=== PATIENT | female | born 1970 | race Caucasian/White ===

== ENCOUNTER → 2018-05-18 14:04 | Outpatient (CLI) | payer MEDICARE, MEDICAID, SELFPAY ==
[2018-05-18 16:16] LABS: Hematocrit 36.3 % (37-47); Hemoglobin 12.4 g/dl (12.0-15.0); Mean Corp Hgb Conc 34.2 g/gl (32-36); Mean Corpuscular Volume 90.8 fL (81-99); Mean Platelet Vol. 9.8 fl (6.2-12.0); Platelet Count 342 K/mm3 (150-450); RBC Distribution Width CV 11.9 % (11.6-14.6); RBC Distribution Width SD 38.8 fl (35.1-43.9)
[2018-05-18 16:18] LABS: Carbamazepine (Tegretol) 9.8 ug/mL (4.0-12.0)
[2018-05-18 16:20] LABS: ALB/GLOB Ratio 1.2 RATIO (0.9-2.4); AST(SGOT) 9 U/L (15-37); Alanine Aminotransfer ALT/SGPT 21 U/L (13-56); Alkaline Phosphatase 125 U/L (45-117); Anion Gap 8 (5-15); BUN 13 mg/dL (7-18); BUN/Creat Ratio 28.5 RATIO (10-20); Calcium,Total 8.8 mg/dL (8.5-10.1); Chloride 100 mmol/L (98-107); Creatinine, Serum 0.46 mg/dL (0.55-1.02); EST Glomerular Filtration Rate 155 mL/min (>60); Est Glom Filt Rate - Afr Amer 188 mL/min (>60); Globulin 3.4 g/dL (2.2-4.2); Glucose 117 mg/dL (74-106); Magnesium 2.4 mg/dL (1.6-2.6); Phosphorus 3.9 mg/dL (2.5-4.9); Potassium 3.8 mmol/L (3.5-5.1); Protein, Total 7.4 g/dL (6.4-8.2); Sodium Level 135 mmol/L (136-145)
[2018-05-18 16:34] LABS: Scan Indicated on CBC? Y/N NO
== END ==
PROVIDERS: Family Provider Internal Medicine; PCP Internal Medicine; Referring Provider Nurse Practitioner Acute Care; Visit Provider Nurse Practitioner Acute Care
DX: R56.9 Unspecified convulsions (principal)
CPT/HCPCS: 36415; 80053; 80156; 83735; 84100; 85027

== ENCOUNTER → 2018-12-14 | Outpatient (CLI) | payer MEDICARE, MEDICAID, SELFPAY ==
[2018-12-14 13:34] LABS: Absolute Lymphocyte Count 1.32 X10^3/uL (0.83-4.51); Basophil# 0.03 X10^3/uL; Basophil% 0.6 % (0-1); Eosinophil# 0.04 X10^3/uL; Eosinophils% 0.8 % (0-5); Hematocrit 36.2 % (37-47); Hemoglobin 12.3 g/dL (12.0-15.0); Lymphocyte # 1.32 X10^3/ul (4.0); Lymphocyte % 27.3 % (19-41); Mean Corpuscular Volume 91.2 fL (81-99); Mean Platelet Vol. 9.5 fl (6.2-12.0); Monocyte# 0.42 X10^3/uL; Monocyte% 8.7 % (0-10); NRBC Flagged by Analyzer 0 % (0-5); Neutrophil # 3.01 X10^3/uL (2.7-7.7); Neutrophil % 62.4 % (47-70); Platelet Count 347 K/mm3 (150-450); RBC Distribution Width CV 11.8 % (11.6-14.6); RBC Distribution Width SD 39.7 fl (35.1-43.9); Red Blood Count 3.97 M/mm3 (4.2-5.4); White Blood Count 4.8 K/mm3 (4.4-11.0)
[2018-12-14 14:06] LABS: ALB/GLOB Ratio 1.2 RATIO (0.9-2.4); AST(SGOT) 10 U/L (15-37); Alanine Aminotransfer ALT/SGPT 19 U/L (13-56); Alkaline Phosphatase 108 U/L (45-117); Anion Gap 8 (5-15); BUN 10 mg/dL (7-18); Bilirubin, Direct 0.08 mg/dL (0.00-0.30); Calcium,Total 8.9 mg/dL (8.5-10.1); Chloride 98 mmol/L (98-107); Creatinine, Serum 0.44 mg/dL (0.55-1.02); EST Glomerular Filtration Rate 164 mL/min (>60); Est Glom Filt Rate - Afr Amer 198 mL/min (>60); Globulin 3.4 g/dL (2.2-4.2); Glucose 88 mg/dL (74-106); Potassium 4.3 mmol/L (3.5-5.1); Protein, Total 7.4 g/dL (6.4-8.2); Sodium Level 135 mmol/L (136-145)
[2018-12-14 14:18] LABS: Carbamazepine (Tegretol) 13.3 ug/mL (4.0-12.0)
== END | disposition home or self-care (01) ==
LOC: LAB 11:38
PROVIDERS: Family Provider Internal Medicine; PCP Internal Medicine; Referring Provider Nurse Practitioner Family; Visit Provider Nurse Practitioner Family
DX: R56.9 Unspecified convulsions (principal)
CPT/HCPCS: 36415; 80053; 80156; 82248; 85025

== ENCOUNTER → 2019-01-15 | Outpatient (CLI) | payer MEDICARE, MEDICAID, SELFPAY ==
--- NOTE | 2019-01-18 15:39 | EEG ---
- Electroencephalogram Date of service 01/15/2019 History: EEG is being done in this 48 yr F to rule out seizures EEG Description: This is an 18 channel EEG with 10-20 lead placement system. Bipolar montages, and Referential montages were reviewed. Photic stimulation was performed but Hyperventilation was not performed. The posterior dominant rhythm is 5 HZ synchronous, symmetric, reacting to eye opening and closing. Photo stimulation elicited normal driving response but no abnormal photoparoxysmal response, Hyperventilation was not performed. Sleep was not identified. There is abnormal background slowing noted in the theta frequency range. There was no epileptiform discharges or electrographic seizures noted during this recording. Muscle artefact noted during most of the record. EEG Interpretation This is an abnormal EEG due to the presence of moderate generalized background slowing. This may be seen with generalized cerebral dysfunction like metabolic/toxic encephalopathy. Clinical correlation is advised. There is no epileptiform discharges or electrographic seizures noted during the record.
== END | disposition home or self-care (01) ==
LOC: PSN 09:17
PROVIDERS: Family Provider Internal Medicine; PCP Internal Medicine; Referring Provider Nurse Practitioner Family; Visit Provider Nurse Practitioner Family
DX: R56.9 Unspecified convulsions (principal)
CPT/HCPCS: 95819

== ENCOUNTER 2019-02-22 10:25 | Inpatient (IN) | payer MEDICARE, MEDICAID, SELFPAY ==
[2019-02-22] VITALS (11 sets, daily range): BP systolic 89–122; BP diastolic 62–92; PULSE 74–116; RESP 11–21; TEMP 36.7–37.7; O2SAT 97–100; BMI 21.9; BMI 23.3; BMI 23.4
--- NOTE | 2019-02-22 11:07 | ED.DCSUM_ITS ---
History of Present Illness Chief Complaint: Lower Extremity Injury Informant: - - Caregiver Limited by: - - Cognitive impairment/developmentally delayed Onset: Today Context: Sudden Onset Timing: Continuous Quality: Swelling and redness right knee Location: Anterior right knee Current Severity: Moderate Maximum Severity: Moderate Worsened by: Unknown Relieved by: Nothing Associated Symptoms: Unknown Prior similar symptoms: No Recent Illness/Hospitalization: No - Past Medical History (1) MRDM (malnutrition related diabetes mellitus) Status: Deleted Past Medical History - Allergies and Home Meds Allergies/Adverse Reactions: Allergies No Known Allergies Allergy (Verified 08/18/15 09:21) Prior records reviewed: Yes Surgical History: noncontributory Lives: - - Caregiver Smoking Status: Never smoker Alcohol: None Drugs: None - Family History Maternal Family History: Reports: Heart Disease Review of Systems ROS: Unable to Obtain - Significant cognitive impairment Musculoskeletal: Reports: Swelling, Extremity Pain Skin: Reports: Rash Physical Exam Vital Signs/Narrative: Vital Signs Temp Pulse Resp BP Pulse Ox 02/22/19 10:26 99.9 F H 91 18 121/73 H 98 Inital Vital Signs reviewed: Yes General: Well nourished, Well developed, No Acute Distress Head: Normocephalic, Atraumatic Eyes: Perrl, EOMI. Negative for: Pale conjunctiva, Scleral icterus, - ENT: Moist mucous membranes, No rhinorrhea Neck: Supple, Nontender, No lymphadenopathy, No JVD Cardiovascular: Regular rate, Regular rhythm, No murmurs, Normal S1, Normal S2 Respiratory: No distress, CTA bilaterally, Chest nontender Abdomen: Soft, Nontender, Nondistended Back: Nontender Extremities: Tenderness - There is significant swelling with erythema and fluctuance over the prepatellar bursa right knee. There is no lymphangitis. There is no inguinal lymphadenopathy.. Negative for: Nontender Skin: Normal color, Rash - Colitis anterior right knee Neurological: Alert. Negative for: Oriented x3, Cranial nerves II-XII grossly intact, Normal Strength, Normal Sensation, Normal Gait - Caregiver states she ambulates on her knees Psychological: Normal affect Diagnostic/Tx/Re-eval Laboratory Results 02/22/19 02/22/19 02/22/19 11:10 11:10 11:10 WBC 10.9 RBC 3.82 L Hgb 11.7 L Hct 34.6 L MCV 90.6 MCH 30.6 MCHC 33.8 RDW Std Deviation 38.7 RDW Coeff of Domitila 11.7 Plt Count 301 MPV 9.3 Immature Gran % (Auto) 0.500 Neut % (Auto) 77.1 H Lymph % (Auto) 10.3 L [place] % (Auto) 11.8 H Eos % (Auto) 0.1 Baso % (Auto) 0.2 Absolute Neuts (auto) 8.4 H Absolute Lymphs (auto) 1.13 Nucleated RBC % 0 Sodium 132 L Potassium 4.2 Chloride 98 Carbon Dioxide 29.0 Anion Gap 5 BUN 7 Creatinine 0.40 L Estim Creat Clear Calc 122.20 Est GFR (MDRD) Af Amer 218 Est GFR (MDRD) Non-Af 180 BUN/Creatinine Ratio 17.5 Glucose 101 Lactic Acid 0.9 Calcium 8.8 Total Bilirubin 0.30 AST 16 ALT 20 Alkaline Phosphatase 118 H Total Protein 7.5 Albumin 3.7 Globulin 3.8 Albumin/Globulin Ratio 1.0 - Medical Decision Making Patient with evidence of septic bursitis and cellulitis right knee. He has not had anything to eat since last evening. There is no allergy to soy products or egg products. Will obtain consent from caregiver for deep sedation with propofol and I&D of septic bursitis. Infectious work-up was undertaken and a lactate and blood cultures were obtained prior to initiation of antibiotics. White count is normal. Lactate is normal. There was thick purulent material from prepatellar bursa. The hospitalist and orthopedic surgeon were paged for admission. Procedures Procedure(s): Deep procedural sedation and I&D of septic prepatellar bursa. Patient received a total of 100 mg of propofol. Total time for procedure 6 minutes. Start time 1244 end time 1250. Patient tolerated procedure well without complications. Once desired effect was achieved the area was anesthetized with 1% lidocaine. Incision was made using a 10 blade. There was thick gelatinous purulent material that flowed freely from incision site. Blunt dissection was undertaken. Culture was obtained. Wick was placed. ED Disposition - Plan for ED Patient: Disposition: Acute Care [facility] Diagnosis: Septic infrapatellar bursitis of right knee, Cellulitis of right knee
[2019-02-22 11:27] LABS: Absolute Lymphocyte Count 1.13 X10^3/uL (0.83-4.51); Absolute Neutrophil Count 8.4 X10^3/uL (2.0-7.7); Basophil# 0.02 X10^3/uL; Basophil% 0.2 % (0-1); Eosinophil# 0.01 X10^3/uL; Eosinophils% 0.1 % (0-5); Hematocrit 34.6 % (37-47); Hemoglobin 11.7 g/dL (12.0-15.0); Lymphocyte # 1.13 X10^3/ul (4.0); Lymphocyte % 10.3 % (19-41); Mean Corp Hgb Conc 33.8 g/dL (32-36); Mean Corpuscular Hgb 30.6 pg (27.0-32.0); Mean Corpuscular Volume 90.6 fL (81-99); Mean Platelet Vol. 9.3 fl (6.2-12.0); Monocyte# 1.29 X10^3/uL; Monocyte% 11.8 % (0-10); NRBC Flagged by Analyzer 0 % (0-5); Neutrophil # 8.43 X10^3/uL (2.7-7.7); Neutrophil % 77.1 % (47-70); Platelet Count 301 K/mm3 (150-450); RBC Distribution Width CV 11.7 % (11.6-14.6); RBC Distribution Width SD 38.7 fl (35.1-43.9); Red Blood Count 3.82 M/mm3 (4.2-5.4); White Blood Count 10.9 K/mm3 (4.4-11.0)
[2019-02-22 11:37] LABS: AST(SGOT) 16 U/L (15-37); Alanine Aminotransfer ALT/SGPT 20 U/L (13-56); Albumin, Serum 3.7 g/dL (3.2-5.0); Alkaline Phosphatase 118 U/L (45-117); Anion Gap 5 (5-15); BUN 7 mg/dL (7-18); BUN/Creat Ratio 17.5 RATIO (10-20); Calcium,Total 8.8 mg/dL (8.5-10.1); Chloride 98 mmol/L (98-107); EST Glomerular Filtration Rate 180 mL/min (>60); Est Glom Filt Rate - Afr Amer 218 mL/min (>60); Globulin 3.8 g/dL (2.2-4.2); Glucose 101 mg/dL (74-106); Potassium 4.2 mmol/L (3.5-5.1); Protein, Total 7.5 g/dL (6.4-8.2); Sodium Level 132 mmol/L (136-145)
[2019-02-22 11:46] LABS: Lactic Acid 0.9 mmol/L (0.4-2.0)
--- NOTE | 2019-02-22 12:50 | NURSING ---
DR BROWN PAGED HOSPITALIST PAGED
[2019-02-22] MEDS: Propofol 200 MG/20 ML Vial IV BOLUS (12:58)
--- NOTE | 2019-02-22 13:05 | NURSING ---
MED SURG JOPPERI SEPTIC BURSITIS RT KNEE AND CELLULITIS
--- NOTE | 2019-02-22 14:52 | HP.PCM_ITS ---
Problem List (1) Septic infrapatellar bursitis of right knee Status: Acute (2) Cellulitis of right knee Status: Acute History of Present Illness Date of Admission: 02/22/19 Chief Complaint: right knee hot and swollen The patient is a 48 year old F who has MRDD and unable to provide any history, so history is obtained through emergency physician as well as the patient's jail director. Patient was in her normal state of health yesterday but it was noted that her right knee was swollen and red. Patient was any manifesting any signs or symptoms of infection the patient was brought to the hospital. In the emergency room, patient underwent a bedside I&D that produced copious amounts of purulent fluid. Patient due to cerebral palsy has a shortened plantar tendons and so does not walk around normally because she takes a almost like seated stance when she walks so it is easier for her to actually fall to her knees and walk that way. Patient jail director states that she normally leans first on her right knee. Patient has developed a large callus under her right knee and is always slightly larger than her left but the changes were noted today. Patient has had some redness of her knees before but never to this extent. No prior history of gout. [] Past Medical History Medical History: Medical History (Last Updated 02/22/19 @ 14:55 by Jluis Zarate DO) Cerebral palsy G80.9 MRDM (malnutrition related diabetes mellitus) E46, E08.9 Seizure disorder G40.909 Allergies No Known Allergies Allergy (Verified 08/18/15 09:21) Home Medications: Ambulatory Orders Medication Instructions Recorded Carbamazepine [Tegretol] 300 mg PO BIDCM 08/29/14 Carbamazepine [Tegretol] 400 mg PO DAILY 08/29/14 Loratadine [Claritin] 10 mg PO DAILY@0630 08/29/14 Polyethylene Glycol 3350 [Miralax] 17 gm PO DAILY@1530 08/29/14 Lacosamide [Vimpat] 200 mg PO BID 02/22/19 Surgical History: noncontributory Lives: - - Caregiver Smoking Status: Never smoker Alcohol: None Drugs: None - *Family History Maternal History Items: Heart Disease Review of Systems Comment: Unable to obtain accurate review of systems as patient is a poor historian given her mental impairments. VTE Information - Inpt Only VTE Present on Admission: No VTE Mechan Device Prophylaxis: None VTE Pharm Prophylaxis ordered?: Yes Patient Problems: Active and Suspected Problems Septic infrapatellar bursitis of right knee (Acute) Cellulitis of right knee (Acute) - Physical Exam General: - - afebrile. pleasantly confused. HEENT: Atraumatic, Normocephalic Oral: Moist Mucosa, No Gingival or Mucosal Lesions/ Ulcerations Neck: No Nodes, Thyroid Normal Size and Texture Lungs: Clear to auscultation, Normal air movement, No rhonchi, No wheeze Cardiovascular: Regular rate, Regular Rhythm, Normal S1, Normal S2, No murmurs Abdomen: Bowel Sounds Present, Soft, Non Tender, Non-Distended, No Hepato- splenomegaly Extremities: Edema - Bogginess of the right knee. No tenderness to palpation. Skin: - - Erythema over the right knee that is withdrawn from the line of demarcation. Does have a horizontal incision with a wick in place. Neurological: Sensory exam intact to light touch and pain, - - No clonus Psych/Mental Status: - - Pleasantly confused. Vital Signs Temp Pulse Resp BP Pulse Ox 36.7 C 89 16 115/92 H 98 02/22/19 14:14 02/22/19 14:14 02/22/19 14:14 02/22/19 14:14 02/22/19 14:14 Oxygen Flow Rate (L/min) [3] 2 Oxygen Flow Rate (L/min) [2] 2 Oxygen Flow Rate (L/min) [1 ( 2 Initial Baseline)] Oxygen Flow Rate (L/min) 2 Oxygen Delivery Method [3] Nasal Cannula Oxygen Delivery Method [2] Nasal Cannula Oxygen Delivery Method [1 ( Nasal Cannula Initial Baseline)] Oxygen Delivery Method Room Air Weight: 54 kg Body Mass Index (BMI) 23.3 Intake and Output for Last 24 Hours 02/20/19 02/21/19 02/22/19 23:59 23:59 23:59 Intake Total 100 / 100 Balance 100 / 100 Laboratory Tests Past 24 Hrs 02/22/19 02/22/19 02/22/19 11:10 11:10 11:10 WBC 10.9 RBC 3.82 L Hgb 11.7 L Hct 34.6 L MCV 90.6 MCH 30.6 MCHC 33.8 RDW Std Deviation 38.7 RDW Coeff of Domitila 11.7 Plt Count 301 MPV 9.3 Immature Gran % (Auto) 0.500 Neut % (Auto) 77.1 H Lymph % (Auto) 10.3 L [place] % (Auto) 11.8 H Eos % (Auto) 0.1 Baso % (Auto) 0.2 Absolute Neuts (auto) 8.4 H Absolute Lymphs (auto) 1.13 Nucleated RBC % 0 Sodium 132 L Potassium 4.2 Chloride 98 Carbon Dioxide 29.0 Anion Gap 5 BUN 7 Creatinine 0.40 L Estim Creat Clear Calc 122.20 Est GFR (MDRD) Af Amer 218 Est GFR (MDRD) Non-Af 180 BUN/Creatinine Ratio 17.5 Glucose 101 Lactic Acid 0.9 Calcium 8.8 Total Bilirubin 0.30 AST 16 ALT 20 Alkaline Phosphatase 118 H Total Protein 7.5 Albumin 3.7 Globulin 3.8 Albumin/Globulin Ratio 1.0 Assessment/Plan All Active Problems Septic infrapatellar bursitis of right knee (Acute) Cellulitis of right knee (Acute) 1. Right knee cellulitis * Could also be infected bursitis * Patient did receive vancomycin in the emergency room and will continue on the floor * Orthopedics consulted through the emergency room and will defer any further surgical intervention, if necessary, to them. * This may relate with patient walking on her knees and causing some superficial abrasions at lead to this infection. 2. Cerebral palsy/MRDD * Complicates matters * Avoid chemical and physical restraints if patient does manifest episodes of confusion or sundowning unless necessary to protect patient or staff 3. Seizure disorder * Continue with seizure precautions * Continue with Tegretol and lacosamide 4. VTE prophylaxis: Moderate risk. Low molecular weight heparin. Code Visit Inpatient E&M: 09880 Init Hosp L3
--- NOTE | 2019-02-22 16:02 | PCM.RX.CS ---
Consult Pharmacy has been consulted to manage selected antiobiotic: Vancomycin Type of Consult: New start Suspected Infection: Other - bursitis Prior Doses of Antibiotics Received/Current Regimen: LOADING DOSE: vancomycin IV 1250mg x1 given in ER 1307 (02/22) Labs: Sodium 132 mmol/L (136-145) L 02/22/19 11:10 Potassium 4.2 mmol/L (3.5-5.1) 02/22/19 11:10 Chloride 98 mmol/L (98-107) 02/22/19 11:10 Carbon Dioxide 29.0 mmol/L (21.0-32.0) 02/22/19 11:10 Anion Gap 5 (5-15) 02/22/19 11:10 BUN 7 mg/dL (7-18) 02/22/19 11:10 Creatinine 0.40 mg/dL (0.55-1.02) L 02/22/19 11:10 Est GFR (MDRD) Af Amer 218 mL/min (>60) 02/22/19 11:10 Est GFR (MDRD) Non-Af 180 mL/min (>60) 02/22/19 11:10 BUN/Creatinine Ratio 17.5 RATIO (10-20) 02/22/19 11:10 Glucose 101 mg/dL (74-106) 02/22/19 11:10 Goal Trough: 15-20 mcg/mL Pharmacy Plan for Drug Dosin. based on actual body weight and CrCl 122, will start vancomycin IV 750mg q8h starting at 2100 2. will order trough prior to 4th dose Pharmacy Service will continue to monitor and adjust dosing as required. Labs to be done on [date and time ordered]: trough 02/23/19 @ 1230
[2019-02-22] MEDS: Polyethylene Glycol 3350 17 GM PACKET PO (16:16)
[2019-02-22] MEDS: CARBAMAZEPINE 100 MG TAB.CHEW 400 MG PO (16:26)
--- NOTE | 2019-02-22 18:33 | CON.PCM_ITS ---
Reason for Consult Date of Consultation: 02/22/19 Reason for Consultation: Right knee pain, prepatellar bursitis. Requested by Dr. Carpenter History of Present Illness: The patient is a 48 year old F with severe MRDD and multiple medical comorbidities. Patient normally does crawl around on her knees for mobility around the house. She has chronic calluses on the anterior knees. 1 of her caregivers is at the bedside and gives most of history. She presented to the emergency department this morning. She had severe knee pain and swelling over the anterior knee. The emergency department physician did a bedside irrigation debridement and patient was started on IV antibiotics and admitted to the hospital. Currently her pain is in the front part of her knee. She has associated swelling and redness. The redness has improved since outlined in the emergency department. She has received vancomycin and Zosyn. Past Medical History Medical History: Medical History (Last Updated 02/22/19 @ 14:55 by Jluis Zarate DO) Cerebral palsy G80.9 MRDM (malnutrition related diabetes mellitus) E46, E08.9 Seizure disorder G40.909 Allergies No Known Allergies Allergy (Verified 08/18/15 09:21) Home Medications: Ambulatory Orders Medication Instructions Recorded Carbamazepine [Tegretol] 300 mg PO BIDCM 08/29/14 Carbamazepine [Tegretol] 400 mg PO DAILY 08/29/14 Loratadine [Claritin] 10 mg PO DAILY@0630 08/29/14 Polyethylene Glycol 3350 [Miralax] 17 gm PO DAILY@1530 08/29/14 Lacosamide [Vimpat] 200 mg PO BID 02/22/19 Surgical History: noncontributory Lives: - - Caregiver Smoking Status: Never smoker Alcohol: None Drugs: None - *Family History Maternal History Items: Heart Disease Review of Systems Constitutional: Reports: Fever. Denies: Chills HEENT: Denies: Head Aches, Sinus Congestion, Sinus Drainage Cardiovascular: Denies: Chest Pain Respiratory: Denies: Cough Gastrointestinal: Denies: Abdominal Pain Genitourinary: Denies: Dysuria Musculoskeletal: Reports: - - Anterior knee swelling, - - Right knee has chronic aseptic bursitis Skin: Reports: - - Redness in the anterior knee Psychiatric: Reports: - - MRDD Patient Problems: Active and Suspected Problems (Last Updated 02/22/19 @ 14:55 by BRIANNE Milton Septic infrapatellar bursitis of right knee (Acute) Cellulitis of right knee (Acute) - Physical Exam General: Alert, Cooperative, - - MRDD HEENT: Atraumatic Extremities: - - Left lower extremity: Left anterior knee has calluses over the anterior knee with a chronic aseptic bursitis. Right knee: Decreased erythema from previous outline. There is a horizontal laceration from bedside debridement with packing. No gross purulence. There is underlying fluctuance. No pain with knee range of motion. Neurovascular intact distally. Vital Signs Temp Pulse Resp BP Pulse Ox 98.0 F 89 16 115/92 H 98 02/22/19 14:14 02/22/19 14:14 02/22/19 14:14 02/22/19 14:14 02/22/19 14:14 Oxygen Flow Rate (L/min) [3] 2 Oxygen Flow Rate (L/min) [2] 2 Oxygen Flow Rate (L/min) [1 ( 2 Initial Baseline)] Oxygen Flow Rate (L/min) 2 Oxygen Delivery Method [3] Nasal Cannula Oxygen Delivery Method [2] Nasal Cannula Oxygen Delivery Method [1 ( Nasal Cannula Initial Baseline)] Oxygen Delivery Method Room Air Weight: 119 lb 0.794 oz Body Mass Index (BMI) 23.3 Intake and Output for Last 24 Hours 02/20/19 02/21/19 02/22/19 23:59 23:59 23:59 Intake Total 855 / 855 Output Total 200 / 200 Balance 655 / 655 Laboratory Tests Past 24 Hrs 02/22/19 02/22/19 02/22/19 11:10 11:10 11:10 WBC 10.9 RBC 3.82 L Hgb 11.7 L Hct 34.6 L MCV 90.6 MCH 30.6 MCHC 33.8 RDW Std Deviation 38.7 RDW Coeff of Domitila 11.7 Plt Count 301 MPV 9.3 Immature Gran % (Auto) 0.500 Neut % (Auto) 77.1 H Lymph % (Auto) 10.3 L [place] % (Auto) 11.8 H Eos % (Auto) 0.1 Baso % (Auto) 0.2 Absolute Neuts (auto) 8.4 H Absolute Lymphs (auto) 1.13 Nucleated RBC % 0 Sodium 132 L Potassium 4.2 Chloride 98 Carbon Dioxide 29.0 Anion Gap 5 BUN 7 Creatinine 0.40 L Estim Creat Clear Calc 122.20 Est GFR (MDRD) Af Amer 218 Est GFR (MDRD) Non-Af 180 BUN/Creatinine Ratio 17.5 Glucose 101 Lactic Acid 0.9 Calcium 8.8 Total Bilirubin 0.30 AST 16 ALT 20 Alkaline Phosphatase 118 H Total Protein 7.5 Albumin 3.7 Globulin 3.8 Albumin/Globulin Ratio 1.0 Assessment/Plan All Active Problems (Last Updated 02/22/19 @ 14:55 by Jluis Zarate DO) Septic infrapatellar bursitis of right knee (Acute) Cellulitis of right knee (Acute) Right knee septic prepatellar bursitis. Natural history of the disease process and treatment options were discussed with the caregiver at the bedside. At this point patient has had a bedside debridement and is shown initial response to IV antibiotics and debridement. Recommend another 48 hours of antibiotics and close serial examinations. The patient needs to improve she likely will be discharged on oral antibiotics. If she does not improve would consider formal debridement in the operating room. I explained to the caregiver that sometimes a more aggressive debridement is necessary in order to gain control of the infection. We will reexamine in the morning. VIDHYA [facility] Office:
[2019-02-22] MEDS: Lacosamide 100 MG Tablet 200 MG PO (18:43)
[2019-02-22] MEDS: CARBAMAZEPINE 100 MG TAB.CHEW 300 MG PO (22:09)
[2019-02-22] MEDS: 0.9% NaCl Peripheral Flush Adult/Peds IV (22:23)
[2019-02-23] VITALS (7 sets, daily range): BP systolic 99–114; BP diastolic 49–77; PULSE 88–110; RESP 16–18; TEMP 36.8–38.5; O2SAT 94–97
[2019-02-23] MEDS: Acetaminophen 325 MG Tablet 650 MG PO (02:24)
[2019-02-23] MEDS: Loratadine 10 MG Tablet PO (06:09)
[2019-02-23] MEDS: Lacosamide 100 MG Tablet 200 MG PO ×2 (06:09→18:46)
[2019-02-23] MEDS: CARBAMAZEPINE 100 MG TAB.CHEW 300 MG PO ×2 (06:10→22:04)
[2019-02-23 06:48] LABS: Anion Gap 6 (5-15); BUN 14 mg/dL (7-18); BUN/Creat Ratio 18.5 RATIO (10-20); Calcium,Total 8.8 mg/dL (8.5-10.1); Chloride 106 mmol/L (98-107); Creatinine, Serum 0.76 mg/dL (0.55-1.02); EST Glomerular Filtration Rate 86 mL/min (>60); Est Glom Filt Rate - Afr Amer 104 mL/min (>60); Estimated Creatinine Clearance 76.33 ml/min; Glucose 123 mg/dL (74-106); Potassium 3.8 mmol/L (3.5-5.1); Sodium Level 136 mmol/L (136-145)
--- NOTE | 2019-02-23 07:37 | PN.ORTHO_ITS ---
Patient Problems: Active and Suspected Problems (Last Updated 02/22/19 @ 14:55 by Jluis Zarate DO) Septic infrapatellar bursitis of right knee (Acute) Cellulitis of right knee (Acute) Subjective: Patient lying in bed sleeping. Patient awake with stimulus. Patient nonverbal. Patient appeared to be in no distress. Objective: Patient lying in bed supine. No obvious respiratory distress. Labs and vitals within normal limits. Patient afebrile. Exam of the knee patient has reduction of erythema as outlined by the emergency department. Packing is in place with no active drainage at this time. She had no calf tenderness or no response to pain to palpation to the calf. - Physical Exam Vital Signs Temp Pulse Resp BP Pulse Ox 98.3 F 106 H 18 99/61 97 02/23/19 06:18 02/23/19 03:28 02/23/19 03:28 02/23/19 03:28 02/23/19 03:28 Oxygen Flow Rate (L/min) [3] 2 Oxygen Flow Rate (L/min) [2] 2 Oxygen Flow Rate (L/min) [1 ( 2 Initial Baseline)] Oxygen Flow Rate (L/min) 2 Oxygen Delivery Method [3] Nasal Cannula Oxygen Delivery Method [2] Nasal Cannula Oxygen Delivery Method [1 ( Nasal Cannula Initial Baseline)] Oxygen Delivery Method Room Air Weight: 54 kg Body Mass Index (BMI) 23.3 Intake and Output for Last 24 Hours 02/21/19 02/22/19 02/23/19 23:59 23:59 23:59 Intake Total 1420 / 1420 362.5 / 362.5 Output Total 400 / 400 Balance 1020 / 1020 362.5 / 362.5 Laboratory Tests Past 24 Hrs 02/22/19 02/22/19 02/22/19 11:10 11:10 11:10 WBC 10.9 RBC 3.82 L Hgb 11.7 L Hct 34.6 L MCV 90.6 MCH 30.6 MCHC 33.8 RDW Std Deviation 38.7 RDW Coeff of Domitila 11.7 Plt Count 301 MPV 9.3 Immature Gran % (Auto) 0.500 Neut % (Auto) 77.1 H Lymph % (Auto) 10.3 L [place] % (Auto) 11.8 H Eos % (Auto) 0.1 Baso % (Auto) 0.2 Absolute Neuts (auto) 8.4 H Absolute Lymphs (auto) 1.13 Nucleated RBC % 0 Sodium 132 L Potassium 4.2 Chloride 98 Carbon Dioxide 29.0 Anion Gap 5 BUN 7 Creatinine 0.40 L Estim Creat Clear Calc 122.20 Est GFR (MDRD) Af Amer 218 Est GFR (MDRD) Non-Af 180 BUN/Creatinine Ratio 17.5 Glucose 101 Lactic Acid 0.9 Calcium 8.8 Total Bilirubin 0.30 AST 16 ALT 20 Alkaline Phosphatase 118 H Total Protein 7.5 Albumin 3.7 Globulin 3.8 Albumin/Globulin Ratio 1.0 02/23/19 05:50 WBC RBC Hgb Hct MCV MCH MCHC RDW Std Deviation RDW Coeff of Domitila Plt Count MPV Immature Gran % (Auto) Neut % (Auto) Lymph % (Auto) [place] % (Auto) Eos % (Auto) Baso % (Auto) Absolute Neuts (auto) Absolute Lymphs (auto) Nucleated RBC % Sodium 136 Potassium 3.8 Chloride 106 Carbon Dioxide 24.0 Anion Gap 6 BUN 14 Creatinine 0.76 Estim Creat Clear Calc 76.33 Est GFR (MDRD) Af Amer 104 Est GFR (MDRD) Non-Af 86 BUN/Creatinine Ratio 18.5 Glucose 123 H Lactic Acid Calcium 8.8 Total Bilirubin AST ALT Alkaline Phosphatase Total Protein Albumin Globulin Albumin/Globulin Ratio Medical Necessity - Tobacco Use Smoking Status: Never smoker Assessment/Plan All Active Problems (Last Updated 02/22/19 @ 14:55 by Jluis Zarate DO) Septic infrapatellar bursitis of right knee (Acute) Cellulitis of right knee (Acute) Right infrapatellar bursitis\improving Cellulitis right knee\improving Plan 1. Continue pain medication as prescribed 2. Continue antibiotics as prescribed 3. Ortho will continue to monitor for possible surgical I&D
[2019-02-23] MEDS: Enoxaparin 40 MG/0.4 ML Syringe SC (08:57)
--- NOTE | 2019-02-23 11:09 | CT_ITS ---
STUDY: CT RIGHT KNEE/LOWER LEG WITH CONTRAST REASON FOR EXAM: Right knee cellulitis. TECHNIQUE: Transaxial CT imaging of the knee was performed post contrast administration. The examination was performed with intravenous administration of IV 100mL Isovue-300 100. Individualized dose optimization techniques were used for this CT. COMPARISON: None. FINDINGS: Normal visualized distal femur, proximal/mid tibia/fibula and patella without bone destruction. There is mild joint space narrowing of the of the articular joint space of the medial knee compartment (coronal reconstruction 33). There is preservation of the articular joint space of the lateral knee compartment. Normal proximal tibiofibular articulation. There is no joint effusion. The quadriceps tendon is grossly normal. The patellar tendon is grossly normal. Normal Hoffa's fat pad. There is a fluid collection with a contrast enhancing wall anterior to the distal patella, patellar tendon and proximal tibia (sagittal reconstructions 9-42) measuring approximately 1.9 x 8.7 x 9.4 cm (AP x transverse x length). There are small pockets of gas within the fluid collection (axial images 37-41) suggestive of abscess with overlying sinus tract (sagittal reconstruction 34). There is adjacent soft tissue swelling suggestive of cellulitis. There is atrophy with partial fat replacement of the medial and lateral gastrocnemius and soleus muscles (sagittal reconstructions 22-34). CT/Extremity Lower WITH Contrast IMPRESSION: Abscess at the anterior aspect of the knee/proximal tibia with adjacent cellulitis and sinus tract. Mild arthrosis of the medial femorotibial compartment. Atrophy of the medial and lateral gastrocnemius and soleus muscles. No demonstrated osteomyelitis. Electronically Signed: Malik Barden MD at 14:42 EDT Tel , Service support ,
--- NOTE | 2019-02-23 11:10 | PN_ITS ---
Patient Problems: Active and Suspected Problems (Last Updated 02/22/19 @ 14:55 by Jluis Zarate DO) Septic infrapatellar bursitis of right knee (Acute) Cellulitis of right knee (Acute) Subjective: Didn't sleep well last night. Eating breakfast this AM. Vitals/I&O's: Vital Signs Temp Pulse Resp BP Pulse Ox 36.8 C 94 16 104/69 97 02/23/19 08:44 02/23/19 08:44 02/23/19 08:44 02/23/19 08:44 02/23/19 08:44 Oxygen Flow Rate (L/min) [3] 2 Oxygen Flow Rate (L/min) [2] 2 Oxygen Flow Rate (L/min) [1 ( 2 Initial Baseline)] Oxygen Flow Rate (L/min) 2 Oxygen Delivery Method [3] Nasal Cannula Oxygen Delivery Method [2] Nasal Cannula Oxygen Delivery Method [1 ( Nasal Cannula Initial Baseline)] Oxygen Delivery Method Room Air Weight: 54 kg Body Mass Index (BMI) 23.3 Intake and Output for Last 24 Hours 02/21/19 02/22/19 02/23/19 23:59 23:59 23:59 Intake Total 1420 / 1420 362.5 / 362.5 Output Total 400 / 400 Balance 1020 / 1020 362.5 / 362.5 General: Alert, No apparent distress, - - up being fed breakfast. HEENT: Atraumatic, Normocephalic Extremities: - - Going to the right knee with bogginess. Incision is clean and dry but no purulence or serosanguineous fluid to be expressed. Psych/Mental Status: Appropriate, Flat Affect Microbiology Past 72 Hours 02/22/19 12:57 Aspirate - Knee Wound Culture - Preliminary No growth-Final to follow Laboratory Results 02/22/19 11:10: WBC 10.9, RBC 3.82 L, Hgb 11.7 L, Hct 34.6 L, MCV 90.6, MCH 30.6, MCHC 33.8, RDW Std Deviation 38.7, RDW Coeff of Domitila 11.7, Plt Count 301, MPV 9.3, Immature Gran % (Auto) 0.500, Neut % (Auto) 77.1 H, Lymph % (Auto) 10.3 L, Williamson % (Auto) 11.8 H, Eos % (Auto) 0.1, Baso % (Auto) 0.2, Absolute Neuts (auto) 8.4 H, Absolute Lymphs (auto) 1.13, Nucleated RBC % 0 02/22/19 11:10: Sodium 132 L, Potassium 4.2, Chloride 98, Carbon Dioxide 29.0, Anion Gap 5, BUN 7, Creatinine 0.40 L, Estim Creat Clear Calc 122.20, Est GFR (MDRD) Af Amer 218, Est GFR (MDRD) Non-Af 180, BUN/Creatinine Ratio 17.5, Glucose 101, Calcium 8.8, Total Bilirubin 0.30, AST 16, ALT 20, Alkaline Phosphatase 118 H, Total Protein 7.5, Albumin 3.7, Globulin 3.8, Albumin/Globulin Ratio 1.0 02/22/19 11:10: Lactic Acid 0.9 02/23/19 05:50: Sodium 136, Potassium 3.8, Chloride 106, Carbon Dioxide 24.0, Anion Gap 6, BUN 14, Creatinine 0.76, Estim Creat Clear Calc 76.33, Est GFR (M DRD) Af Amer 104, Est GFR (MDRD) Non-Af 86, BUN/Creatinine Ratio 18.5, Glucose 123 H, Calcium 8.8 Current Medications Acetaminophen (Tylenol) 650 mg PO Q6H PRN PRN PRN Reason: Mild Pain (1-3)/Temp > 100.7 F Last Admin: 02/23/19 02:24 Dose: 650 mg Documented by: Carbamazepine (Carbamazepine) 300 mg PO 0630,2200 [facility] Last Admin: 02/23/19 06:10 Dose: 300 mg Documented by: Carbamazepine (Carbamazepine) 400 mg PO DAILY@1530 [facility] Last Admin: 02/22/19 16:26 Dose: 400 mg Documented by: Dextrose (D50w Syringe) 0 gm IV X1 PRN; Protocol PRN Reason: Hypoglycemia Enoxaparin Sodium (Lovenox) 40 mg SC DAILY@1000 [facility] Last Admin: 02/23/19 08:57 Dose: 40 mg Documented by: Glucagon () 1 mg IM .X1 PRN PRN Reason: Hypoglycemia Vancomycin IV Pharmacy to Dose (1 ea/ Sodium Chloride) 500 mls @ 250 mls/hr IV X1 PRN; Protocol PRN Reason: Rx to Dose Vancomycin HCl 750 mg/ Sodium (Chloride) 265 mls @ 250 mls/hr IV Q8H [facility] Last Infusion: 02/23/19 05:40 Dose: 0 mls/hr Documented by: Lacosamide (Vimpat) 200 mg PO 0630,1830 [facility] Last Admin: 02/23/19 06:09 Dose: 200 mg Documented by: Loratadine (Claritin) 10 mg PO DAILY@0630 [facility] Last Admin: 02/23/19 06:09 Dose: 10 mg Documented by: Ondansetron HCl (Zofran) 4 mg IV Q8H PRN PRN PRN Reason: NAUSEA/VOMITING Polyethylene Glycol (Miralax) 17 gm PO DAILY@1530 [facility] Last Admin: 02/22/19 16:16 Dose: 17 gm Documented by: Senna/Docusate Sodium (Senokot-S, Morena-Colace) 2 tablet PO BID PRN PRN PRN Reason: Constipation Sodium Chloride () 5 - 15 ml IV UD PRN PRN Reason: SALINE FLUSH Last Admin: 02/22/19 22:23 Dose: 10 ml Documented by: STROKE Vital Signs/Narrative: Vital Signs Temp Pulse Resp BP Pulse Ox 02/23/19 08:44 36.8 C 94 16 104/69 97 Medical Necessity - Tobacco Use Smoking Status: Never smoker Assessment/Plan All Active Problems (Last Updated 02/22/19 @ 14:55 by Jluis Zarate DO) Septic infrapatellar bursitis of right knee (Acute) Cellulitis of right knee (Acute) 1. Right knee cellulitis * infected bursitis * Patient did receive vancomycin in the emergency room and will continue on the floor * Orthopedics consulted and plan for conservative management at this time. * This may relate with patient walking on her knees and causing some superficial abrasions at lead to this infection. * still very boggy. check CT to r/o additional abscess(es) 2. Cerebral palsy/MRDD * Complicates matters * Avoid chemical and physical restraints if patient does manifest episodes of confusion or sundowning unless necessary to protect patient or staff 3. Seizure disorder * Continue with seizure precautions * Continue with Tegretol and lacosamide 4. VTE prophylaxis: Moderate risk. Low molecular weight heparin. Greater than 25 minutes of which greater than 50% of time was discussed with the patient caregiver about the cellulitis and treatment and additional imagings. Explained the MRI be preferable but given patient's MRDD and the lack of conscious sedation at this facility that that would not be feasible so we will proceed with CAT scan instead. Code Visit Inpatient E&M: 72796 Subs Hosp L2
--- NOTE | 2019-02-23 14:39 | PCM.RX.CS ---
Consult Pharmacy has been consulted to manage selected antiobiotic: Vancomycin Type of Consult: Follow-up Suspected Infection: Skin/Soft tissue, Other - bursitis Prior Doses of Antibiotics Received/Current Regimen: Currently on 750mg IV q8h. Labs: Sodium 136 mmol/L (136-145) 02/23/19 05:50 Potassium 3.8 mmol/L (3.5-5.1) 02/23/19 05:50 Chloride 106 mmol/L (98-107) 02/23/19 05:50 Carbon Dioxide 24.0 mmol/L (21.0-32.0) 02/23/19 05:50 Anion Gap 6 (5-15) 02/23/19 05:50 BUN 14 mg/dL (7-18) 02/23/19 05:50 Creatinine 0.76 mg/dL (0.55-1.02) 02/23/19 05:50 Est GFR (MDRD) Af Amer 104 mL/min (>60) 02/23/19 05:50 Est GFR (MDRD) Non-Af 86 mL/min (>60) 02/23/19 05:50 BUN/Creatinine Ratio 18.5 RATIO (10-20) 02/23/19 05:50 Glucose 123 mg/dL (74-106) H 02/23/19 05:50 Vancomycin Trough 11.0 ug/mL (5.0-15.0) 02/23/19 12:35 Microbiology: Microbiology 02/22/19 12:57 Aspirate - Knee Gram Stain - Final 02/22/19 12:57 Aspirate - Knee Wound Culture - Preliminary No growth-Final to follow Weight used for dosin kg Estimated Creatinine Clearance: 76 ml/min Goal Trough: 15-20 mcg/mL Pharmacy Plan for Drug Dosing: The vancomycin trough obtained today came back as 11.0. This is below goal range of 15-20 mg/L but we will not increase the dose today but elect to keep the patient on the same dosing for now since her SCr did rise from 0.4 yesterday to 0.76 today. Will draw another trough and SCr tomorrow to reevaluate. Pharmacy Service will continue to monitor and adjust dosing as required. Follow-Up Labs: Trough Vancomycin Labs to be done on [date and time ordered]: 02/24/19 12:30
--- NOTE | 2019-02-23 15:23 | SUR.HOLD ---
Type of Pastoral Visit _x__ Initial Visit ___ Follow-up Visit ___ On-call Visit ___ General Patient Visit ___ Spiritual Assessment ___ Family Conference ___ Bereavement ___ Rapid Response ___ Code Blue ___ Other (describe below) Pastoral Care Referral From _x__ Patient _x__ Family ___ Nurse ___ Physician ___ Human Resources Specialist ___ Sonar Technician ___ Other (describe below) Sacrament/Intervention _x__ Active listening ___ Anointing ___ Nondenominational ___ Bereavement ___ Communion ___ Lakshmi exploration ___ _x__ Life review _x__ Prayer ___ Reconciliation ___ Sacrament of Sick _x__ Supportive presence ___ Wedding ___ Other (describe below) Pastoral Comments caregiver of patient is with her at this time; pt has special needs and is very talkative; caregiver gives more details; offer of support given; presence given to add in calm reassurance of good care
[2019-02-23] MEDS: Polyethylene Glycol 3350 17 GM PACKET PO (15:26)
[2019-02-23] MEDS: CARBAMAZEPINE 100 MG TAB.CHEW 400 MG PO (15:37)
[2019-02-23] MEDS: 0.9% NaCl Peripheral Flush Adult/Peds IV (21:29)
[2019-02-24 02:45] VITALS: BMI 24.0
[2019-02-24] MEDS: 0.9% NaCl Peripheral Flush Adult/Peds IV ×3 (04:56→22:00)
[2019-02-24 04:57] VITALS: BP 117/61; PULSE 91; RESP 16; TEMP 37.4; O2SAT 99
[2019-02-24] MEDS: Acetaminophen 325 MG Tablet 650 MG PO (05:01)
[2019-02-24 05:24] LABS: Internal QC Validated? YES +Cl - CLEAR BKGD; Pregnancy, Urine Negative Negative
[2019-02-24 05:25] LABS: Partial Thromboplast Time 30.7 Seconds (24.1-36.2)
[2019-02-24 05:39] LABS: Creatinine, Serum 0.69 mg/dL (0.55-1.02); EST Glomerular Filtration Rate 96 mL/min (>60); Est Glom Filt Rate - Afr Amer 117 mL/min (>60); Estimated Creatinine Clearance 84.08 ml/min
[2019-02-24 05:47] LABS: Carbamazepine (Tegretol) 14.1 ug/mL (4.0-12.0)
[2019-02-24] MEDS: Loratadine 10 MG Tablet PO (07:04)
[2019-02-24] MEDS: Lacosamide 100 MG Tablet 200 MG PO ×2 (07:04→18:45)
[2019-02-24] MEDS: CARBAMAZEPINE 100 MG TAB.CHEW 300 MG PO (07:04)
--- NOTE | 2019-02-24 10:02 | PN.ORTHO_ITS ---
Patient Problems: Active and Suspected Problems (Last Updated 02/22/19 @ 14:55 by Jluis Zarate DO) Septic infrapatellar bursitis of right knee (Acute) Cellulitis of right knee (Acute) Subjective: No acute events overnight. Patient did remain stable. After reexamining patient yesterday was noted that she has not begun wound care and dressing changes. The nurse remove the packing overnight. He had difficulty getting new packing into a new packing was not placed. Patient's erythema is improved from initial outline. Secondary outline shows some limited decrease in the erythema. It is starting to localize over that anterior area of swelling. CT scan did show an area of fluid which is loculated in the area of the bursa. She has been afebrile and aseptic. Objective: CT scan was reviewed. Agree with the fluid collection. Sinus tract is related to the previous incision and debridement. Clinically no gross purulence is appreciated. - Physical Exam General: Alert, Cooperative Extremities: - - Right knee: Patient has anterior swelling with erythema over the area of swelling. This was explored with a cotton tip swab this morning. There are multiple areas of loculation with serous cloudy fluid. No gross purulence. Patient is able to bend and straighten knee. No sinus tract is appreciated, there is a previous anterior incision from incision and drainage performed in the emergency department. Vital Signs Temp Pulse Resp BP Pulse Ox 99.4 F H 91 16 117/61 99 02/24/19 04:57 02/24/19 04:57 02/24/19 04:57 02/24/19 04:57 02/24/19 04:57 Oxygen Flow Rate (L/min) [3] 2 Oxygen Flow Rate (L/min) [2] 2 Oxygen Flow Rate (L/min) [1 ( 2 Initial Baseline)] Oxygen Flow Rate (L/min) 2 Oxygen Delivery Method [3] Nasal Cannula Oxygen Delivery Method [2] Nasal Cannula Oxygen Delivery Method [1 ( Nasal Cannula Initial Baseline)] Oxygen Delivery Method Room Air Weight: 119 lb 0.794 oz Body Mass Index (BMI) 24.0 Intake and Output for Last 24 Hours 02/22/19 02/23/19 02/24/19 23:59 23:59 23:59 Intake Total 1420 / 1420 892.5 / 892.5 1065 / 1065 Output Total 400 / 400 350 / 350 Balance 1020 / 1020 892.5 / 892.5 715 / 715 Microbiology Past 72 Hours 02/22/19 12:57 Gram Stain - Final Aspirate - Knee Wound Culture - Preliminary No growth-Final to follow Anaerobic Culture - Preliminary No growth in 48 hours. Laboratory Tests Past 24 Hrs 02/23/19 02/24/19 02/24/19 12:35 04:57 05:00 APTT Creatinine 0.69 Estim Creat Clear Calc 84.08 Est GFR (MDRD) Af Amer 117 Est GFR (MDRD) Non-Af 96 Urine Test Negative Vancomycin Trough 11.0 Carbamazepine 02/24/19 02/24/19 05:00 05:00 APTT 30.7 Creatinine Estim Creat Clear Calc Est GFR (MDRD) Af Amer Est GFR (MDRD) Non-Af Urine Test Vancomycin Trough Carbamazepine 14.1 H* Medical Necessity - Tobacco Use Smoking Status: Never smoker Assessment/Plan All Active Problems (Last Updated 02/22/19 @ 14:55 by Jluis Zarate DO) Septic infrapatellar bursitis of right knee (Acute) Cellulitis of right knee (Acute) Patient's CT scan was reviewed. Her exam was performed this morning. She did have continued redness around the area but improved from her initial examination. She has not been getting packing changed. We started packing changes last night however they did not repack the wound. Wound was explored this morning. There was serous fluid, no gross purulence. I repacked the wound. Wound care has been consulted for daily packing. We will continue serial examinations in the morning to determine appropriateness of surgery. Packing needs to be done aggressively. There is a loculated bursa sac from chronic bursitis. There is chronic bursitis on the contralateral side as well. On patient's medical comorbidities and lack of gross purulence I do believe that with appropriate packing and wound care there is potential for improvement without surgical intervention. A large incision on the anterior knee could pose problems as patient will have difficulty being compliant and is used to crawling around her knees. If no further improvement of the erythema in the next 48 hours we will plan on surgical debridement on Friday. [facility] Office:
[2019-02-24] MEDS: Enoxaparin 40 MG/0.4 ML Syringe SC (10:18)
[2019-02-24 10:30] VITALS: BP 125/78; PULSE 93; RESP 16; TEMP 36.8; O2SAT 98
--- NOTE | 2019-02-24 10:53 | CASEMGMT ---
SW met with patient, her brother, and her caregiver from the [place] [facility], [facility]. SW introduced self and role at [facility]. SW inquired what they are able to do at the [place] [facility] such as IV antibiotics, dressing changes, and wound packing. [facility] said by law they cannot pack the wound or do IV antibiotics. She said they can do dressing changes. SW explained that at this time we don't know what she will need, but SW wanted to check in with them. SW to follow for d/c planning. Mami SWEENEY MSW
[2019-02-24 13:13] LABS: Vancomycin, Trough Level 15.4 ug/mL (5.0-15.0)
--- NOTE | 2019-02-24 14:54 | NURSING ---
wound photo: right knee
--- NOTE | 2019-02-24 15:10 | PCM.RX.CS ---
Consult Pharmacy has been consulted to manage selected antiobiotic: Vancomycin Type of Consult: Follow-up Suspected Infection: Skin/Soft tissue, Other - bursitis Prior Doses of Antibiotics Received/Current Regimen: Vancomycin IV 750mg 02/24 @ 0456 and 02/23 @ 8476 Labs: Sodium 136 mmol/L (136-145) 02/23/19 05:50 Potassium 3.8 mmol/L (3.5-5.1) 02/23/19 05:50 Chloride 106 mmol/L (98-107) 02/23/19 05:50 Carbon Dioxide 24.0 mmol/L (21.0-32.0) 02/23/19 05:50 Anion Gap 6 (5-15) 02/23/19 05:50 BUN 14 mg/dL (7-18) 02/23/19 05:50 Creatinine 0.69 mg/dL (0.55-1.02) 02/24/19 05:00 Est GFR (MDRD) Af Amer 117 mL/min (>60) 02/24/19 05:00 Est GFR (MDRD) Non-Af 96 mL/min (>60) 02/24/19 05:00 BUN/Creatinine Ratio 18.5 RATIO (10-20) 02/23/19 05:50 Glucose 123 mg/dL (74-106) H 02/23/19 05:50 Vancomycin Trough 15.4 ug/mL (5.0-15.0) H 02/24/19 12:10 Microbiology: Microbiology 02/22/19 11:59 Blood Culture (Wb) - Anticubital Right Blood Culture - Preliminary No growth in 48 hours. 02/22/19 11:10 Blood Culture (Wb) - Anticubital Left Blood Culture - Preliminary No growth in 48 hours. 02/22/19 12:57 Aspirate - Knee Gram Stain - Final 02/22/19 12:57 Aspirate - Knee Wound Culture - Preliminary No growth-Final to follow 02/22/19 12:57 Aspirate - Knee Anaerobic Culture - Preliminary No growth in 48 hours. Goal Trough: 15-20 mcg/mL Pharmacy Plan for Drug Dosin. Vancomycin trough 15.4 mg/dL, 7 hour trough, within therapeutic range 2. Will continue current regimen and draw another trough in 4 days Pharmacy Service will continue to monitor and adjust dosing as required. Labs to be done on [date and time ordered]: 02/28/19 @ 6900
--- NOTE | 2019-02-24 15:43 | PCM.PN.HOSP ---
Patient Problems: Active and Suspected Problems (Last Updated 02/22/19 @ 14:55 by Jluis Zarate DO) Septic infrapatellar bursitis of right knee (Acute) Cellulitis of right knee (Acute) Subjective: Patient pleasantly confused. Vitals/I&O's: Vital Signs Temp Pulse Resp BP Pulse Ox 36.8 C 93 16 125/78 H 98 02/24/19 10:30 02/24/19 10:30 02/24/19 10:30 02/24/19 10:30 02/24/19 10:30 Oxygen Flow Rate (L/min) [3] 2 Oxygen Flow Rate (L/min) [2] 2 Oxygen Flow Rate (L/min) [1 ( 2 Initial Baseline)] Oxygen Flow Rate (L/min) 2 Oxygen Delivery Method [3] Nasal Cannula Oxygen Delivery Method [2] Nasal Cannula Oxygen Delivery Method [1 ( Nasal Cannula Initial Baseline)] Oxygen Delivery Method Room Air Weight: 54 kg Body Mass Index (BMI) 24.0 Intake and Output for Last 24 Hours 02/22/19 02/23/19 02/24/19 23:59 23:59 23:59 Intake Total 1420 / 1420 892.5 / 892.5 1305 / 1305 Output Total 400 / 400 350 / 350 Balance 1020 / 1020 892.5 / 892.5 955 / 955 General: No apparent distress, Confused HEENT: Atraumatic, Normocephalic Neck: No Nodes, Thyroid Normal Size and Texture Lungs: Clear to auscultation, Normal air movement, No rhonchi, No wheeze Cardiovascular: Regular rate, Regular Rhythm, Normal S1, Normal S2 Abdomen: Bowel Sounds Present, Soft, Non Tender, Non-Distended Extremities: - - boggy right knee. still with erythema. no purulence expresssed Psych/Mental Status: Normal Affect, Appropriate Microbiology Past 72 Hours 02/22/19 11:59 Blood Culture (Wb) - Anticubital Right Blood Culture - Preliminary No growth in 48 hours. 02/22/19 11:10 Blood Culture (Wb) - Anticubital Left Blood Culture - Preliminary No growth in 48 hours. 02/22/19 12:57 Aspirate - Knee Gram Stain - Final 02/22/19 12:57 Aspirate - Knee Wound Culture - Preliminary No growth-Final to follow 02/22/19 12:57 Aspirate - Knee Anaerobic Culture - Preliminary No growth in 48 hours. Laboratory Results 02/24/19 04:57: Urine Test Negative 02/24/19 05:00: Creatinine 0.69, Estim Creat Clear Calc 84.08, Est GFR (MDRD) Af Amer 117, Est GFR (MDRD) Non-Af 96 02/24/19 05:00: APTT 30.7 02/24/19 05:00: Carbamazepine 14.1 H* 02/24/19 12:10: Vancomycin Trough 15.4 H Current Medications Acetaminophen (Tylenol) 650 mg PO Q6H PRN PRN PRN Reason: Mild Pain (1-3)/Temp > 100.7 F Last Admin: 02/24/19 05:01 Dose: 650 mg Documented by: Carbamazepine (Carbamazepine) 300 mg PO 0630,2200 [facility] Last Admin: 02/24/19 07:04 Dose: 300 mg Documented by: Carbamazepine (Carbamazepine) 400 mg PO DAILY@1530 [facility] Last Admin: 02/23/19 15:37 Dose: 400 mg Documented by: Dextrose (D50w Syringe) 0 gm IV X1 PRN; Protocol PRN Reason: Hypoglycemia Enoxaparin Sodium (Lovenox) 40 mg SC DAILY@1000 [facility] Last Admin: 02/24/19 10:18 Dose: 40 mg Documented by: Glucagon () 1 mg IM .X1 PRN PRN Reason: Hypoglycemia Vancomycin IV Pharmacy to Dose (1 ea/ Sodium Chloride) 500 mls @ 250 mls/hr IV X1 PRN; Protocol PRN Reason: Rx to Dose Vancomycin HCl 750 mg/ Sodium (Chloride) 265 mls @ 250 mls/hr IV Q8H [facility] Last Admin: 02/24/19 12:51 Dose: 250 mls/hr Documented by: Lacosamide (Vimpat) 200 mg PO 0630,1830 [facility] Last Admin: 02/24/19 07:04 Dose: 200 mg Documented by: Loratadine (Claritin) 10 mg PO DAILY@0630 [facility] Last Admin: 02/24/19 07:04 Dose: 10 mg Documented by: Ondansetron HCl (Zofran) 4 mg IV Q8H PRN PRN PRN Reason: NAUSEA/VOMITING Polyethylene Glycol (Miralax) 17 gm PO DAILY@1530 [facility] Last Admin: 02/23/19 15:26 Dose: 17 gm Documented by: Senna/Docusate Sodium (Senokot-S, Morena-Colace) 2 tablet PO BID PRN PRN PRN Reason: Constipation Sodium Chloride () 5 - 15 ml IV UD PRN PRN Reason: SALINE FLUSH Last Admin: 02/24/19 07:06 Dose: 10 ml Documented by: Medical Necessity - Tobacco Use Smoking Status: Never smoker Assessment/Plan All Active Problems (Last Updated 02/22/19 @ 14:55 by Jluis Zarate DO) Septic infrapatellar bursitis of right knee (Acute) Cellulitis of right knee (Acute) 1. Right knee cellulitis infected bursitis Patient did receive vancomycin in the emergency room and will continue on the floor Orthopedics consulted and plan for conservative management at this time. This may relate with patient walking on her knees and causing some superficial abrasions at lead to this infection. still very boggy. CT showing abscess ortho anticipating conservative mgmt at this time. cultures thus far negative. 2. Cerebral palsy/MRDD Complicates matters Avoid chemical and physical restraints if patient does manifest episodes of confusion or sundowning unless necessary to protect patient or staff 3. Seizure disorder Continue with seizure precautions Continue with Tegretol and lacosamide 4. VTE prophylaxis: Moderate risk. Low molecular weight heparin. Code Visit Inpatient E&M: 83715 Subs Hosp L2
--- NOTE | 2019-02-24 15:45 | NURSING ---
Read and reviewed SN documentation
[2019-02-24] MEDS: Polyethylene Glycol 3350 17 GM PACKET PO (16:17)
[2019-02-24] MEDS: CARBAMAZEPINE 100 MG TAB.CHEW 400 MG PO (16:19)
[2019-02-24 16:30] VITALS: BP 137/84; PULSE 88; RESP 16; TEMP 36.8; O2SAT 94
[2019-02-24 21:42] VITALS: BP 132/77; PULSE 95; RESP 20; TEMP 37.8; O2SAT 100
[2019-02-25 03:46] VITALS: BP 131/84; PULSE 91; RESP 22; TEMP 37.7; O2SAT 96
[2019-02-25] MEDS: Lacosamide 100 MG Tablet 200 MG PO ×2 (06:48→18:11)
[2019-02-25] MEDS: Loratadine 10 MG Tablet PO (06:49)
[2019-02-25 07:05] LABS: Carbamazepine (Tegretol) 10.4 ug/mL (4.0-12.0)
[2019-02-25] MEDS: CARBAMAZEPINE 100 MG TAB.CHEW 300 MG PO ×2 (07:20→21:52)
--- NOTE | 2019-02-25 07:28 | PCM.PN.ORT ---
Patient Problems: Active and Suspected Problems (Last Updated 02/22/19 @ 14:55 by Jluis Zarate DO) Septic infrapatellar bursitis of right knee (Acute) Cellulitis of right knee (Acute) Subjective: Patient remains pleasant this morning. She is comfortable in bed. She is been getting twice daily packing now. Packing was changed last evening. No gross purulence was noted at that time. Cultures continue to remain negative. - Physical Exam General: Alert, Cooperative Extremities: - - Right knee: Residual erythema remains however the intensity continues to decrease in the anterior knee area. No pain with knee range of motion. Packing was changed today, no gross purulence was encountered. Vital Signs Temp Pulse Resp BP Pulse Ox 99.8 F H 91 22 H 131/84 H 96 02/25/19 03:46 02/25/19 03:46 02/25/19 03:46 02/25/19 03:46 02/25/19 03:46 Oxygen Flow Rate (L/min) [3] 2 Oxygen Flow Rate (L/min) [2] 2 Oxygen Flow Rate (L/min) [1 ( 2 Initial Baseline)] Oxygen Flow Rate (L/min) 2 Oxygen Delivery Method [3] Nasal Cannula Oxygen Delivery Method [2] Nasal Cannula Oxygen Delivery Method [1 ( Nasal Cannula Initial Baseline)] Oxygen Delivery Method Room Air Weight: 119 lb 0.794 oz Body Mass Index (BMI) 24.0 Intake and Output for Last 24 Hours 02/23/19 02/24/19 02/25/19 23:59 23:59 23:59 Intake Total 892.5 / 892.5 3015.25 / 3015.25 330 / 330 Output Total 350 / 350 Balance 892.5 / 892.5 2665.25 / 2665.25 330 / 330 Microbiology Past 72 Hours 02/22/19 11:59 Blood Culture - Preliminary Blood Culture (Wb) - Anticubital Right No growth in 48 hours. 02/22/19 11:10 Blood Culture - Preliminary Blood Culture (Wb) - Anticubital Left No growth in 48 hours. 02/22/19 12:57 Gram Stain - Final Aspirate - Knee Wound Culture - Preliminary No growth-Final to follow Anaerobic Culture - Preliminary No growth in 48 hours. Laboratory Tests Past 24 Hrs 02/24/19 02/25/19 12:10 06:15 Vancomycin Trough 15.4 H Carbamazepine 10.4 Medical Necessity - Tobacco Use Smoking Status: Never smoker Assessment/Plan All Active Problems (Last Updated 02/22/19 @ 14:55 by Jluis Zarate DO) Septic infrapatellar bursitis of right knee (Acute) Cellulitis of right knee (Acute) Septic bursitis: Patient continues to show improvements with local wound care and IV antibiotics. The intensity of the erythema is decreasing. There is still erythema localized to the area of swelling. There is horizontal incision on the front of the knee. Packing was pulled today by myself. The wound was explored with a Q-tip. Superiorly there is about 2 to 3 cm of tracking both medially and laterally. Inferiorly there is about 1 cm tracking directly inferior. Aggressive packing was again performed with the half-inch packing strips. At this time I would recommend that we transition the patient to p.o. antibiotics. If patient continues to respond well to p.o. antibiotics which she will need to go home and local wound care may be able to set her up for home health care for local wound care. Due to the aggressive nature of the packing I would recommend home health care with a nurse to pack the wound on a daily basis. Also would recommend continued outpatient follow-up with the wound center. Plan for today is to reassess tomorrow morning. Patient will be made n.p.o. after midnight, due to continued considerations for surgical management. [facility] Office:
[2019-02-25 09:46] VITALS: BP 145/86; PULSE 86; RESP 18; TEMP 37.2; O2SAT 97
--- NOTE | 2019-02-25 10:06 | CASEMGMT ---
Addendum entered by Mami Harper 02/25/19 11:43: SW [facility] with [facility] and they do not do outpatient dressing changes or wound packing. Mami LAI Original Note: MYNOR reviewed Dr Moon's note. It appears that if patient does not go to surgery she will need wound packing. Patient resides in a shelter and SW spoke with caregiver yesterday. She said they are not able to do packing, but they would be willing to take her back and forth somewhere to have it done. Home could be set up, but home health does not go out daily for dressing changes. MYNOR called [facility] and left a voice mail requesting a return call. Mami LAI
[2019-02-25] MEDS: Enoxaparin 40 MG/0.4 ML Syringe SC (10:16)
--- NOTE | 2019-02-25 12:48 | CHAPLAIN ---
Type of Pastoral Visit ___ Initial Visit _x__ Follow-up Visit ___ On-call Visit ___ General Patient Visit ___ Spiritual Assessment ___ Family Conference ___ Bereavement ___ Rapid Response ___ Code Blue ___ Other (describe below) Pastoral Care Referral From _x__ Patient ___ Family ___ Nurse ___ Physician ___ Police Booking Officer ___ [place] ___ Other (describe below) Sacrament/Intervention _x__ Active listening ___ Anointing ___ Sikhism ___ Bereavement ___ Communion ___ Lakshmi exploration ___ ___ Life review ___ Prayer ___ Reconciliation ___ Sacrament of Sick ___ Supportive presence ___ Wedding ___ Other (describe below) Pastoral Comments
--- NOTE | 2019-02-25 13:28 | PN_ITS ---
<Martin Grossman - Last Filed: 02/25/19 13:28> Patient Problems: Active and Suspected Problems (Last Updated 02/22/19 @ 14:55 by Jluis Zarate DO) Septic infrapatellar bursitis of right knee (Acute) Cellulitis of right knee (Acute) Subjective: Pt is pleasantly confused with no complaints. Her caregiver is present. Her p rimary concern is that the skilled nursing is not allowed to do daily wound packing, and the patient is unable to do this. She also is worried about her activity at [place] as the patient walks on her knees when she is at the [email or web address]. - Physical Exam General: Alert, Cooperative, Confused - pleasantly, - - frail HEENT: Atraumatic, PERRLA, EOMI, Normocephalic Neck: Supple, No JVD, Negative Carotid Bruits Lungs: Clear to auscultation, Normal air movement Cardiovascular: Regular rate, No murmurs Abdomen: Bowel Sounds Present, Soft, Non Tender Extremities: No edema, Capillary Refill Less than 3 Seconds Skin: No rashes, No breakdown Musculoskeletal: No Tenderness to Palpation of Joints or Extremities, - - right knee tender to palp above and below dressing. No lymphangitis seen, no increased warmth. Neurological: Cranial nerves II-XII grossly intact Psych/Mental Status: Normal Affect, Appropriate, Alert and oriented to time, place, person, mood and affect Vital Signs Temp Pulse Resp BP Pulse Ox 98.9 F 86 18 145/86 H 97 02/25/19 09:46 02/25/19 09:46 02/25/19 09:46 02/25/19 09:46 02/25/19 09:46 Oxygen Flow Rate (L/min) [3] 2 Oxygen Flow Rate (L/min) [2] 2 Oxygen Flow Rate (L/min) [1 ( 2 Initial Baseline)] Oxygen Flow Rate (L/min) 2 Oxygen Delivery Method [3] Nasal Cannula Oxygen Delivery Method [2] Nasal Cannula Oxygen Delivery Method [1 ( Nasal Cannula Initial Baseline)] Oxygen Delivery Method Room Air Weight: 119 lb 0.794 oz Body Mass Index (BMI) 24.0 Intake and Output for Last 24 Hours 02/23/19 02/24/19 02/25/19 23:59 23:59 23:59 Intake Total 892.5 / 892.5 3015.25 / 3015.25 595 / 595 Output Total 350 / 350 Balance 892.5 / 892.5 2665.25 / 2665.25 595 / 595 Microbiology Past 72 Hours 02/22/19 11:59 Blood Culture - Preliminary Blood Culture (Wb) - Anticubital Right No growth in 48 hours. 02/22/19 11:10 Blood Culture - Preliminary Blood Culture (Wb) - Anticubital Left No growth in 48 hours. 02/22/19 12:57 Gram Stain - Final Aspirate - Knee Wound Culture - Preliminary No growth-Final to follow Anaerobic Culture - Preliminary No growth in 48 hours. Laboratory Tests Past 24 Hrs 02/25/19 06:15 Carbamazepine 10.4 Medical Necessity - Tobacco Use Smoking Status: Never smoker Assessment/Plan All Active Problems (Last Updated 02/22/19 @ 14:55 by Jluis Zarate DO) Septic infrapatellar bursitis of right knee (Acute) Cellulitis of right knee (Acute) 1. Septic bursitis right knee with abscess - continue empiric therapy with vancomycin. NPO after midnight, ortho will re-evaluate to determine if she has surgical needs. Wound cultures negative. Fever last night. Weight bearing per ortho. Pt unable to have daily home health care for wound packing, cannot do it herself, and the staff at the skilled nursing are not allowed to provide this. The wound center will not do outpatient wound packing daily either. 2. Cerebral palsy, MRDD - stable. Cannot provide her own wound care, walks on her knees. Pleasantly confused. 3. Seizure disorder - tegretol, vimpat DVT ppx: lovenox DC planning: for assistance in planning wound care. This patient was seen by Martin Grossman PA-C under the supervision of Dr. Zarate. <Jluis Zarate - Last Filed: 02/25/19 13:44> Subjective: Patient pleasantly confused. - Physical Exam General: Alert, Confused, - HEENT: Atraumatic, Normocephalic Musculoskeletal: - Psych/Mental Status: Appropriate Vital Signs Temp Pulse Resp BP Pulse Ox 37.2 C 86 18 145/86 H 97 02/25/19 09:46 02/25/19 09:46 02/25/19 09:46 02/25/19 09:46 02/25/19 09:46 Oxygen Flow Rate (L/min) [3] 2 Oxygen Flow Rate (L/min) [2] 2 Oxygen Flow Rate (L/min) [1 ( 2 Initial Baseline)] Oxygen Flow Rate (L/min) 2 Oxygen Delivery Method [3] Nasal Cannula Oxygen Delivery Method [2] Nasal Cannula Oxygen Delivery Method [1 ( Nasal Cannula Initial Baseline)] Oxygen Delivery Method Room Air Weight: 54 kg Body Mass Index (BMI) 24.0 Intake and Output for Last 24 Hours 02/23/19 02/24/19 02/25/19 23:59 23:59 23:59 Intake Total 892.5 / 892.5 3015.25 / 3015.25 595 / 595 Output Total 350 / 350 Balance 892.5 / 892.5 2665.25 / 2665.25 595 / 595 Microbiology Past 72 Hours 02/22/19 11:59 Blood Culture - Preliminary Blood Culture (Wb) - Anticubital Right No growth in 48 hours. 02/22/19 11:10 Blood Culture - Preliminary Blood Culture (Wb) - Anticubital Left No growth in 48 hours. 02/22/19 12:57 Gram Stain - Final Aspirate - Knee Wound Culture - Preliminary No growth-Final to follow Anaerobic Culture - Preliminary No growth in 48 hours. Laboratory Tests Past 24 Hrs 02/25/19 06:15 Carbamazepine 10.4 Assessment/Plan Patient seen and examined independently. Data reviewed. I agree with the above note by the physician assistant corporation counsel. 1. Right knee cellulitis * infected bursitis * Patient did receive vancomycin in the emergency room and will continue on the floor * Orthopedics consulted and plan for conservative management at this time. * This may relate with patient walking on her knees and causing some superficial abrasions at lead to this infection. * still very boggy. * CT showing abscess * ortho anticipating conservative mgmt at this time. Reeval on 02/26 to see if surgery would be necessary or not. * cultures thus far negative. 2. Cerebral palsy/MRDD * Complicates matters * Avoid chemical and physical restraints if patient does manifest episodes of confusion or sundowning unless necessary to protect patient or staff 3. Seizure disorder * Continue with seizure precautions * Continue with Tegretol and lacosamide 4. VTE prophylaxis: Moderate risk. Low molecular weight heparin. Code Visit Inpatient E&M: 28246 Subs Hosp L2
[2019-02-25 15:45] VITALS: BP 136/79; PULSE 96; RESP 18; TEMP 37.3; O2SAT 100
[2019-02-25] MEDS: Polyethylene Glycol 3350 17 GM PACKET PO (15:51)
--- NOTE | 2019-02-25 15:51 | CASEMGMT ---
RN SHOAIB spoke with the wound center and as long as Dr Moon is ok with The [facility] managing patient's wound they would be ok with seeing her and doing her daily packing. She asked that we verify this with Dr Moon. Mami SWEENEY MSW
[2019-02-25] MEDS: CARBAMAZEPINE 100 MG TAB.CHEW 400 MG PO (15:55)
[2019-02-25 16:00] VITALS: O2SAT 100
[2019-02-25] MEDS: 0.9% NaCl Peripheral Flush Adult/Peds IV (21:51)
[2019-02-25 22:03] VITALS: BP 125/60; PULSE 98; RESP 22; TEMP 37.9; O2SAT 96
[2019-02-26 03:52] VITALS: BP 127/76; PULSE 84; RESP 19; TEMP 37.2; O2SAT 97
[2019-02-26] MEDS: 0.9% NaCl Peripheral Flush Adult/Peds IV (05:30)
[2019-02-26 06:18] LABS: Absolute Neutrophil Count 4.3 X10^3/uL (2.0-7.7); Basophil# 0.02 X10^3/uL; Basophil% 0.3 % (0-1); Eosinophil# 0.13 X10^3/uL; Hematocrit 27.5 % (37-47); Lymphocyte % 18.4 % (19-41); Mean Corp Hgb Conc 32.7 g/dL (32-36); Mean Corpuscular Hgb 30.7 pg (27.0-32.0); Mean Corpuscular Volume 93.9 fL (81-99); Mean Platelet Vol. 9.5 fl (6.2-12.0); Monocyte# 0.89 X10^3/uL; Monocyte% 13.6 % (0-10); NRBC Flagged by Analyzer 0 % (0-5); Neutrophil # 4.27 X10^3/uL (2.7-7.7); Neutrophil % 65.4 % (47-70); Platelet Count 330 K/mm3 (150-450); RBC Distribution Width CV 12.2 % (11.6-14.6); RBC Distribution Width SD 42.3 fl (35.1-43.9); Red Blood Count 2.93 M/mm3 (4.2-5.4); White Blood Count 6.5 K/mm3 (4.4-11.0)
--- NOTE | 2019-02-26 06:29 | PCM.PN.ORT ---
Patient Problems: Active and Suspected Problems (Last Updated 02/22/19 @ 14:55 by Jluis Zarate DO) Septic infrapatellar bursitis of right knee (Acute) Cellulitis of right knee (Acute) Subjective: Patient showing continued improvement. Continues to have elevations in temperature overnight. Blood cultures are negative fluid cultures from initial irrigation were negative. Erythema continues to resolve. Erythema is less intense today. No gross purulence with wound packing. It does appear solution is been set up for continued wound care. This includes home health care on the weekends and visits to the wound center throughout the week. - Physical Exam General: Alert, Oriented x3, Cooperative Extremities: - - Right lower extremity: No pain with knee range of motion. Patient's erythema continues to resolve. Less intense today. When packing is removed there is less erythema. No gross purulence is noted with packing changes. Vital Signs Temp Pulse Resp BP Pulse Ox 98.9 F 84 19 H 127/76 H 97 02/26/19 03:52 02/26/19 03:52 02/26/19 03:52 02/26/19 03:52 02/26/19 03:52 Oxygen Flow Rate (L/min) [3] 2 Oxygen Flow Rate (L/min) [2] 2 Oxygen Flow Rate (L/min) [1 ( 2 Initial Baseline)] Oxygen Flow Rate (L/min) 2 Oxygen Delivery Method [3] Nasal Cannula Oxygen Delivery Method [2] Nasal Cannula Oxygen Delivery Method [1 ( Nasal Cannula Initial Baseline)] Oxygen Delivery Method Room Air Weight: 119 lb 0.794 oz Body Mass Index (BMI) 24.0 Intake and Output for Last 24 Hours 02/24/19 02/25/19 02/26/19 23:59 23:59 23:59 Intake Total 3015.25 / 3015.25 2850 / 2850 108.5 / 108.5 Output Total 350 / 350 0 / 0 Balance 2665.25 / 2665.25 2850 / 2850 108.5 / 108.5 Microbiology Past 72 Hours 02/22/19 11:59 Blood Culture - Preliminary Blood Culture (Wb) - Anticubital Right No growth in 48 hours. 02/22/19 11:10 Blood Culture - Preliminary Blood Culture (Wb) - Anticubital Left No growth in 48 hours. 02/22/19 12:57 Gram Stain - Final Aspirate - Knee Wound Culture - Preliminary No growth-Final to follow Anaerobic Culture - Preliminary No growth in 48 hours. Laboratory Tests Past 24 Hrs 02/25/19 02/26/19 06:15 05:47 WBC 6.5 RBC 2.93 L Hgb 9.0 L Hct 27.5 L MCV 93.9 MCH 30.7 MCHC 32.7 RDW Std Deviation 42.3 RDW Coeff of Domitila 12.2 Plt Count 330 MPV 9.5 Immature Gran % (Auto) 0.300 Neut % (Auto) 65.4 Lymph % (Auto) 18.4 L [place] % (Auto) 13.6 H Eos % (Auto) 2.0 Baso % (Auto) 0.3 Absolute Neuts (auto) 4.3 Absolute Lymphs (auto) 1.20 Nucleated RBC % 0 Carbamazepine 10.4 Medical Necessity - Tobacco Use Smoking Status: Never smoker Assessment/Plan All Active Problems (Last Updated 02/22/19 @ 14:55 by Jluis Zarate DO) Septic infrapatellar bursitis of right knee (Acute) Cellulitis of right knee (Acute) Septic bursitis: Patient continues to show improvements with local wound care and IV antibiotics. The intensity of the erythema is decreasing daily. There is still erythema localized to the area of swelling. There is horizontal incision on the front of the knee. Packing was pulled today by myself. The wound was explored with a Q-tip, no gross purulence was encountered. Superiorly there is about 2 to 3 cm of tracking both medially and laterally. Inferiorly there is about 1 cm tracking directly inferior. Aggressive packing was again performed with the half-inch packing strips. At this time I would recommend that we transition the patient to p.o. antibiotics. If patient continues to respond well to p.o. antibiotics which she will need to go home and local wound care may be able to set her up for home health care for local wound care. At this time I will recommend that wound care assumes care of the wound. It does appear that there is been a solution set up for the patient involving wound care visits and weekend home health care to help with appropriate treatment. At this time no surgical intervention is planned. Patient does need to transition to oral antibiotics prior to discharge unless IV antibiotics are planned on discharge. At this time I recommend continued wound care management which the patient is responded to well. Follow-up in the wound center. Follow-up with orthopedics as needed if wound fails to heal appropriately, or fails treatment with p.o. antibiotics. Please call with any further questions or concerns. [facility] Office:
[2019-02-26] MEDS: Lacosamide 100 MG Tablet 200 MG PO (06:34)
[2019-02-26] MEDS: Loratadine 10 MG Tablet PO (06:34)
[2019-02-26] MEDS: CARBAMAZEPINE 100 MG TAB.CHEW 300 MG PO (06:36)
[2019-02-26 09:52] VITALS: BP 113/84; PULSE 95; RESP 18; TEMP 37.2; O2SAT 97
[2019-02-26] MEDS: Enoxaparin 40 MG/0.4 ML Syringe SC (09:59)
--- NOTE | 2019-02-26 10:07 | CASEMGMT ---
This LETTY CRAMER spoke with Tiffanie in the [facility] wound center at this time and she states that they cannot see pt until Friday03/02/19 for 1st appt and she wondered if [facility] could do the dressing change Friday, Friday, and Friday for the 1st week and then the second week, the wound center would do Friday-Friday from then on, if needed. [facility] and wound center both agreeable to the above plan. Wound center appt listed in pt's f/u appt worklist at this time and Linda, social secretary, updated at this time, voices understanding. Pt's caregiver to be updated on all when she returns. Mustapha LOWE updated on all, voices understanding. Sangeeta SAENZ CM
--- NOTE | 2019-02-26 10:49 | NURSING ---
Dressing changes will now be daily. Dr Moon had been in this am and changed dressing and packing. plan is for patient for be discharged today. Home Health will change the dressing this and Friday of next week. Pt has an appt at the wound center on Friday03/02/19 at 1415.
--- NOTE | 2019-02-26 11:22 | PCM.DC ---
- Discharge Diagnoses Current Active Problems: Current Active and Chronic Problems (Last Updated 02/22/19 @ 14:55 by Jluis Zarate DO) Septic infrapatellar bursitis of right knee (Acute) Cellulitis of right knee (Acute) You will use the following diet at home:: No restrictions Your food should be the consistency of: Regular Your liquids should be the consistency of: Regular/Thin Discharge Activity: - - No ambulation on the knees until cleared by ortho, and no return to workshop until cleared by ortho. Allergies/Adverse Reactions: Allergies No Known Allergies Allergy (Verified 08/18/15 09:21) Medications to take at Discharge Carbamazepine [Tegretol] 300 mg PO BIDCM 08/29/14 Carbamazepine [Tegretol] 400 mg PO DAILY 08/29/14 Loratadine [Claritin] 10 mg PO DAILY@0630 08/29/14 Polyethylene Glycol 3350 [Miralax] 17 gm PO DAILY@1530 08/29/14 Lacosamide [Vimpat] 200 mg PO BID 02/22/19 Acetaminophen [Tylenol Tablet] 650 mg PO Q6H PRN PRN tablet 02/26/19 Smz/Tpm Suspension [Bactrim Suspension 800-160mg/20ml] 20 ml PO Q12H 7 Days #1 bottle 02/26/19 The following prescriptions were given: Smz/Tpm Suspension [Bactrim Suspension 800-160mg/20ml] 20 ml PO Q12H 7 Days #1 bottle Transmission Status: Pending to [facility] [place] - [address] Primary Care Physician: Dorota Glass MD [Primary Care Provider] - Please follow up with your Primary Care Physician in: 1-2 weeks Test Results: Test results from this visit will be discussed in further detail at your follow-up appointment, if applicable. Please Follow Up With: Tarun Moon MD When: 2 weeks Please Follow Up With: Wound care center When: Friday Proposed Discharge Date: 02/26/19
--- NOTE | 2019-02-26 11:52 | PHA.DC.MR ---
Pharmacy Service has performed discharge medication reconciliation for this patient. Home Medications Carbamazepine [Tegretol] 300 mg PO BIDCM 08/29/14 Carbamazepine [Tegretol] 400 mg PO DAILY 08/29/14 Loratadine [Claritin] 10 mg PO DAILY@0630 08/29/14 Polyethylene Glycol 3350 [Miralax] 17 gm PO DAILY@1530 08/29/14 Lacosamide [Vimpat] 200 mg PO BID 02/22/19 Acetaminophen [Tylenol Tablet] 650 mg PO Q6H PRN PRN tab 02/26/19 Smz/Tpm Suspension [Bactrim Suspension 800-160mg/20ml] 20 ml PO Q12H 7 Days #1 bottle 02/26/19 The patient's discharge medication list was reviewed for discrepancies and discrepancies were resolved.
--- NOTE | 2019-02-26 12:36 | CASEMGMT ---
RN SHOAIB assisted SW in arranging for wound care for patient. The plan is for patient to have [facility] on Saturdays and Sundays to do wound packing. Then Friday through Friday [facility] will do the packing/dressing changes. The only exception is this 03-01 home health will do this dressing change. patient's first appointment at the Wound Center is 03-02 at . MYNOR wrote down this information on patient's discharge instructions. MYNOR also went over all of this information with patient's caregiver. MYNOR wrote down the phone number for [facility]. MYNOR also emphasized that patient should be homebound while she has home health. MYNOR explained she can go to doctor's appts and zoroastrianism. MYNOR explained that she will not be able to go to her workshop until the wound center clears her and home health is no longer coming out. Patient's caregiver voiced understanding of all of this information. Plan: Home with [facility] for wound care Sat, Fri, and Fri (03-01) only. Then Fri-Fri [facility] will do wound care. Mami SWEENEY MSW
--- NOTE | 2019-02-26 13:42 | DS.PCM_ITS ---
<Martin Grossman - Last Filed: 02/26/19 13:42> Discharge Date and Diagnosis Date of Admission: 02/22/19 Date of Discharge: 02/26/19 - Primary Discharge Diagnosis Septic bursitis right knee with abscess Cerebral palsy, MRDD History of seizure disorder Hospital Course and Treatment Imaging Results: CT/Extremity Lower WITH Contrast IMPRESSION: Abscess at the anterior aspect of the knee/proximal tibia with adjacent cellulitis and sinus tract. Mild arthrosis of the medial femorotibial compartment. Atrophy of the medial and lateral gastrocnemius and soleus muscles. No demonstrated osteomyelitis. Consultations 02/23/19 16:21 Consult: Onc/Wound/processing technician Routine Comment: Orthopedics - Red Operations: None Procedures: None Summary of Care Provided: Hospital course: The patient is a 48 year old F with past medical history of MRDD, cerebral palsy, seizure disorder, who presented from her nursing home with complaints of a swollen and hot right knee with surrounding erythema. In the emergency room she had an I&D procedure and copious amounts of blood and purulent fluid were drained. She did not have leukocytosis, she did however have a fever up to 101.3 and some tachycardia. With her cerebral palsy it is easier for her to walk on her knees, she does not typically walk on her feet. She was admitted to the PCU on telemetry and started on vancomycin and Zosyn. Orthopedics was consulted. CT of the lower extremity demonstrated an abscess, adjacent cellulitis, and sinus tract, no osteo-. They provided wound packing and did not feel that surgery was warranted. Blood and wound cultures were negative. Continued outpatient antibiotics were recommended with ongoing wound care. We were able to arrange for her to have daily wound care between home health care and the wound care center. We prescribed 7 more days of oral Bactrim. We advised her to not continue to ambulate on her knees at least until reevaluated by orthopedics, and as she is required to do this in order to go to workshop, she should refrain from going to workshop until she is able to go back to her normal function. She will need to follow-up with orthopedics in 2 weeks, with the wound center on Friday, and with her PCP in 1 to 2 weeks. She was discharged back to her nursing home in stable condition. This patient was seen by Martin Grossman PA-C under the supervision of Doctor Tessa. [] - Physical Exam General: Alert, Oriented x3, Cooperative HEENT: Atraumatic, PERRLA, EOMI, Normocephalic Neck: Supple, No JVD, Negative Carotid Bruits Lungs: Clear to auscultation, Normal air movement Cardiovascular: Regular rate, No murmurs Abdomen: Bowel Sounds Present, Soft, Non Tender Extremities: No edema, Capillary Refill Less than 3 Seconds Skin: No rashes, No breakdown Musculoskeletal: No Tenderness to Palpation of Joints or Extremities Neurological: Cranial nerves II-XII grossly intact Psych/Mental Status: Normal Affect, Appropriate, Alert and oriented to time, place, person, mood and affect Vital Signs Temp Pulse Resp BP Pulse Ox 99.0 F 95 18 113/84 H 97 02/26/19 09:52 02/26/19 09:52 02/26/19 09:52 02/26/19 09:52 02/26/19 09:52 Oxygen Flow Rate (L/min) [3] 2 Oxygen Flow Rate (L/min) [2] 2 Oxygen Flow Rate (L/min) [1 ( 2 Initial Baseline)] Oxygen Flow Rate (L/min) 2 Oxygen Delivery Method [3] Nasal Cannula Oxygen Delivery Method [2] Nasal Cannula Oxygen Delivery Method [1 ( Nasal Cannula Initial Baseline)] Oxygen Delivery Method Room Air Weight: 119 lb 0.794 oz Body Mass Index (BMI) 24.0 Intake and Output for Last 24 Hours 02/24/19 02/25/19 02/26/19 23:59 23:59 23:59 Intake Total 3015.25 / 3015.25 2850 / 2850 627.25 / 627.25 Output Total 350 / 350 0 / 0 Balance 2665.25 / 2665.25 2850 / 2850 627.25 / 627.25 Microbiology Past 72 Hours 02/22/19 11:59 Blood Culture - Preliminary Blood Culture (Wb) - Anticubital Right No growth in 48 hours. 02/22/19 11:10 Blood Culture - Preliminary Blood Culture (Wb) - Anticubital Left No growth in 48 hours. 02/22/19 12:57 Gram Stain - Final Aspirate - Knee Wound Culture - Preliminary No growth-Final to follow Anaerobic Culture - Preliminary No growth in 48 hours. Laboratory Tests Past 24 Hrs 02/26/19 05:47 WBC 6.5 RBC 2.93 L Hgb 9.0 L Hct 27.5 L MCV 93.9 MCH 30.7 MCHC 32.7 RDW Std Deviation 42.3 RDW Coeff of Domitila 12.2 Plt Count 330 MPV 9.5 Immature Gran % (Auto) 0.300 Neut % (Auto) 65.4 Lymph % (Auto) 18.4 L Dillon % (Auto) 13.6 H Eos % (Auto) 2.0 Baso % (Auto) 0.3 Absolute Neuts (auto) 4.3 Absolute Lymphs (auto) 1.20 Nucleated RBC % 0 Discharge Diet: No Restrictions Discharge Activity: - - No ambulation on the knees until cleared by ortho, and no return to workshop until cleared by ortho. Home Medications: Medications to take at Discharge Carbamazepine [Tegretol] 300 mg PO BIDCM 08/29/14 Carbamazepine [Tegretol] 400 mg PO DAILY 08/29/14 Loratadine [Claritin] 10 mg PO DAILY@0630 08/29/14 Polyethylene Glycol 3350 [Miralax] 17 gm PO DAILY@1530 08/29/14 Lacosamide [Vimpat] 200 mg PO BID 02/22/19 Acetaminophen [Tylenol Tablet] 650 mg PO Q6H PRN PRN tab 02/26/19 Smz/Tpm Suspension [Bactrim Suspension 800-160mg/20ml] 20 ml PO Q12H 7 Days #1 bottle 02/26/19 Following Prescrptions Were Given to Patient: Smz/Tpm Suspension [Bactrim Suspension 800-160mg/20ml] 20 ml PO Q12H 7 Days #1 bottle Transmission Status: Received by [facility], [place], [facility] [place] - [address] Primary Care Physician: Dorota Glass MD [Primary Care Provider] - Please follow up with your Primary Care Physician in: 1-2 weeks Please Follow Up With: Tarun Moon MD When: 2 weeks Please Follow Up With: Wound care center When: Friday Disposition: Home with Home Health Minutes spent on discharge:: 35 Patient Condition:: Stable Medical Necessity - Tobacco Use Smoking Status: Never smoker Meaningful Use Info Meaningful Use Diagnoses (Choose all that apply): None applicable <Jluis Zarate - Last Filed: 10/18/19 15:15> Hospital Course and Treatment Consultations 02/23/19 16:21 Consult: Onc/Wound/processing technician Routine Comment: Operations: None Procedures: None Summary of Care Provided: Patient seen and examined independently. Data reviewed. I agree with the above note by the physician parts room assistant. The patient is a 48 year old F Arturo with acute redness and swelling of her right knee. Patient has cerebral palsy and due to some contractures of her leg patient prefers to move by shuffling on her knees rather than walking. Patient has developed a callus on her right knee but developed acute redness above that. Patient had it drained today that showed a purulent fluid in the emergency room though cultures came back negative. Pain brito patient was very comfortable. Patient had a CAT scan showed a large anterior abscess. Orthopedics was consulted and recommended conservative measures and monitor the patient and felt the patient did not require surgery. Patient will continue with antibiotics, wound care and any changes and to follow-up with orthopedics. Patient will be returning back to her nursing home and care providers. [] - Physical Exam General: Alert, Cooperative HEENT: Atraumatic, Normocephalic Lungs: Clear to auscultation, Normal air movement Musculoskeletal: - - swelling of right knee, lessened. Psych/Mental Status: - - pleastantly confused Vital Signs Temp Pulse Resp BP Pulse Ox 37.2 C 95 18 113/84 H 97 02/26/19 09:52 02/26/19 09:52 02/26/19 09:52 02/26/19 09:52 02/26/19 09:52 Oxygen Flow Rate (L/min) [3] 2 Oxygen Flow Rate (L/min) [2] 2 Oxygen Flow Rate (L/min) [1 ( 2 Initial Baseline)] Oxygen Flow Rate (L/min) 2 Oxygen Delivery Method [3] Nasal Cannula Oxygen Delivery Method [2] Nasal Cannula Oxygen Delivery Method [1 ( Nasal Cannula Initial Baseline)] Oxygen Delivery Method Room Air Weight: 54 kg Body Mass Index (BMI) 24.0 Intake and Output for Last 24 Hours 02/24/19 02/25/19 02/26/19 23:59 23:59 23:59 Intake Total 3015.25 / 3015.25 2850 / 2850 627.25 / 627.25 Output Total 350 / 350 0 / 0 Balance 2665.25 / 2665.25 2850 / 2850 627.25 / 627.25 Microbiology Past 72 Hours 02/22/19 11:59 Blood Culture - Preliminary Blood Culture (Wb) - Anticubital Right No growth in 48 hours. 02/22/19 11:10 Blood Culture - Preliminary Blood Culture (Wb) - Anticubital Left No growth in 48 hours. 02/22/19 12:57 Gram Stain - Final Aspirate - Knee Wound Culture - Preliminary No growth-Final to follow Anaerobic Culture - Preliminary No growth in 48 hours. Laboratory Tests Past 24 Hrs 02/26/19 05:47 WBC 6.5 RBC 2.93 L Hgb 9.0 L Hct 27.5 L MCV 93.9 MCH 30.7 MCHC 32.7 RDW Std Deviation 42.3 RDW Coeff of Domitila 12.2 Plt Count 330 MPV 9.5 Immature Gran % (Auto) 0.300 Neut % (Auto) 65.4 Lymph % (Auto) 18.4 L Dillon % (Auto) 13.6 H Eos % (Auto) 2.0 Baso % (Auto) 0.3 Absolute Neuts (auto) 4.3 Absolute Lymphs (auto) 1.20 Nucleated RBC % 0 Discharge Diet: No Restrictions Discharge Activity: - Minutes spent on discharge:: 35 Patient Condition:: Good Medical Necessity - Tobacco Use Smoking Status: Never smoker Meaningful Use Info Meaningful Use Diagnoses (Choose all that apply): None applicable Code Visit Inpatient E&M: 06063 Disch Hosp
== END 2019-02-26 12:55 | disposition home health service (06) | DRG 501 ==
LOC: ED 12:51 → PCU 13:43
PROVIDERS: Anesthesiology; Family Medicine; Physician Assistant; Emergency Provider Emergency Medicine; Family Provider Internal Medicine; PCP Internal Medicine
DX: M71.161 Other infective bursitis, right knee (principal); L03.115 Cellulitis of right lower limb; G80.9 Cerebral palsy, unspecified; G40.909 Epilepsy, unspecified, not intractable, without status epilepticus; L84 Corns and callosities; M71.562 Other bursitis, not elsewhere classified, left knee
CPT/HCPCS: 36415; 73701; 80048; 80053; 80156; 80202; 81025; 82565; 83605; 85025; 85730; 87040; 87070; 87075; 87205; 99284; J7030; J7050; Q9967; A4216

== ENCOUNTER 2019-03-09 14:30 | Outpatient (RCR) | payer MEDICARE, MEDICAID, SELFPAY ==
[2019-03-02 14:49] VITALS: BP 118/78; PULSE 80; RESP 16; TEMP 37.6; BMI 24.0
--- NOTE | 2019-03-02 16:50 | HP.PCM_ITS ---
(1) Open wound of right knee Status: Acute Current Visit: Yes Code(s): S81.001A - Unspecified open wound, right knee, initial encounter (2) Septic infrapatellar bursitis of right knee Status: Acute Current Visit: Yes Code(s): M71.161 - Other infective bursitis, right knee; B96.89 - Other specified bacterial agents as the cause of diseases classified elsewhere (3) Mentally challenged Status: Chronic Current Visit: Yes Code(s): F79 - Unspecified intellectual disabilities History of Present Illness Date of Service: 03/02/19 Chief Complaint: right knee septic bursitis with abscess History of Wound: Patient has a history of Cerebral palsy, MRDD, history of seizure disorder. She often crawls on her hands and knees to get around. She developed redness and swelling over her right knee and was admitted through the ED on 02/22/19 where they performed an I&D where thick gelatinous purulent drainage was obtained. Wound and blood cultures from 02/22/19 were negative. She was admitted and placed on IV Vancomycin and Zosyn. They have been packing the knee with iodoform gauze. She was discharged and referred to the wound center. The shelter where she lives is not able to pack her wound daily. Home health comes out 3 times per week. Wound care will stop iodoform and start silvercell packed into the opening. Past Medical History Past Medical History: Chronic Problems (Last Updated 02/22/19 @ 14:55 by Jluis Zarate DO) Mentally challenged (Chronic) Surgical History: noncontributory Allergies/Adverse Reactions: Allergies No Known Allergies Allergy (Verified 03/02/19 15:01) Home Medications: Ambulatory Orders Medication Instructions Recorded Carbamazepine [Tegretol] 300 mg PO DAILY 08/29/14 Loratadine [Claritin] 10 mg PO DAILY@0630 08/29/14 Polyethylene Glycol 3350 [Miralax] 17 gm PO DAILY@1530 08/29/14 Lacosamide [Vimpat] 200 mg PO BID 02/22/19 Smz/Tpm Suspension [Bactrim 20 ml PO Q12H 7 Days #1 bottle 02/26/19 Suspension 800-160mg/20ml] Carbamazepine [Tegretol] 1,600 mg PO DAILY 03/02/19 - Family History Maternal Heart Disease Smoking Status: Never smoker Review of Systems Constitutional: Denies: Chills, Fever Eyes: Reports: - - wears glasses HEENT: Denies: Difficulty Hearing Cardiovascular: Reports: Chest Pain, Palpitations. Denies: Edema Respiratory: Reports: Shortness of Breath. 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 - Physical Exam Vital Signs Temp Pulse Resp BP 99.6 F H 80 16 118/78 03/02/19 14:49 03/02/19 14:49 03/02/19 14:49 03/02/19 14:49 General: Alert HEENT: Atraumatic Oral: Moist Mucosa Lungs: Clear to auscultation, Normal air movement Cardiovascular: Regular rate, Regular Rhythm Abdomen: Soft Extremities: Capillary Refill Less than 3 Seconds Skin: Ulcer/ Wound - right knee Wound Measurements and Assessment WC - Nurse 1 - General Ulcer Measurement Start: 03/02/19 14:31 Freq: Status: Active Protocol: Activity Type Activity Date Activity User E-Sign Co-Sign Detail Recorded Client Recorded Date Recorded By Document 03/02/19 14:49 [facility] [id number] 03/02/19 14:52 [facility] 03/02/19 14:49 Wound Center Nurse 1 [Ulcer Assessment] #1- R KNEE -Combined with other wound No -Current Size (cm) - Length 0.7 -Current Size (cm) - Width 2.5 -Current Size (cm) - Depth 1.5 -Total Square Cm 1.75 -Date of Last Picture (Recall this 03/02/19 field) -Photo Taken Yes -Epithelialization None Present -Tunneling No -Undermining/Tunneling No -Circular Undermining No -Exudate Amt Small -Exudate Type Sanguineous -Wound Margin Distinct, Outline Attached -Granulation Amt Large (67-100%) -Granulation Quality Red -Slough/Fibrin Yes -Necrosis Amt None Present (0 %) -Texture (Morena-wound Skin Appearance) Assessed, Localized Edema ,Scarring -Moisture (Morena-wound Skin Appearance Assessed ) -Color (Morena-wound Skin Appearance) Assessed, Erythema -Temperature (Morena-wound Skin No Abnormality Appearance) (Pt Warm) -Tenderness on Palpation (Morena-wound No Skin Appearance) -Ulcer Cleansing Rinsed/ Irrigated with Saline -Foul Odor after Cleansing No -Anesthetic Used 5% Lidocaine Gel [Edema Assessment] -Lower Limb Edema Present Yes -Right Calf (cm) 29 -Right Ankle (cm) 22.1 MEL - Nurse 2 - General Ulcer CM Notes Start: 03/02/19 14:31 Freq: Status: Active Protocol: Activity Type Activity Date Activity User E-Sign Co-Sign Detail Recorded Client Recorded Date Recorded By Document 03/02/19 15:22 [id number] 03/02/19 15:23 03/02/19 15:22 Wound Center Nurse 2 [Procedure/Treatment] #1- R KNEE -Time 15:22 -Correct Patient Yes -Correct Side, Site, Position Yes -Correct Procedure Yes -Procedure Performed Yes -Type of Procedure Debridement -Clinical Debridement Subcutaneous -Post Debridement Size (cm) - Length 0.7 -Post Debridement Size (cm) - Width 1.8 -Post Debridement Size (cm) - Depth 1.7 -Total Square Cm 1.26 -Wound/Ulcer Outcome Not Healed -Ulcer Cleansing Rinsed/ Irrigated with Saline -Foul Odor after Cleansing No -Bioengineered Tissue No -Bleeding Controlled with Pressure -Offloading No -Treatment Response Procedure Tolerated Well [See Physician Procedure note for Specifics] Pain Scale: 0-10 Numeric [Pain] -Is Patient Pain Free? Yes Musculoskeletal: Tenderness Neurological: Cranial nerves II-XII grossly intact Psych/Mental Status: Normal Affect Debridement Note Post-Debridement Measurements/Treatment - Nurse 2 - General Ulcer CM Notes Start: 03/02/19 14:31 Freq: Status: Active Protocol: Activity Type Activity Date Activity User E-Sign Co-Sign Detail Recorded Client Recorded Date Recorded By Document 03/02/19 15:22 [id number] 03/02/19 15:23 03/02/19 15:22 Wound Center Nurse 2 #1- R KNEE -Time 15:22 -Correct Patient Yes -Correct Side, Site, Position Yes -Correct Procedure Yes -Procedure Performed Yes -Type of Procedure Debridement -Clinical Debridement Subcutaneous -Post Debridement Size (cm) - Length 0.7 -Post Debridement Size (cm) - Width 1.8 -Post Debridement Size (cm) - Depth 1.7 -Total Square Cm 1.26 -Wound/Ulcer Outcome Not Healed -Ulcer Cleansing Rinsed/ Irrigated with Saline -Foul Odor after Cleansing No -Bioengineered Tissue No -Bleeding Controlled with Pressure -Offloading No -Treatment Response Procedure Tolerated Well Pain Scale: 0-10 Numeric Is Patient Pain Free? Yes Wound debrided: knee Laterality: Right Type of Debridement: Excisional debridement Anesthesia Used: 4% Lidocaine Solution, 5% Lidocaine Gel Depth: Down to and including healthy tissue, in the subcutaneous layer Percentage of wound debrided: 100 Instrument Used: 3mm curette Tissue Removed: Subcutaneous tissue and slough Severity: Fat Layer Exposed Amount of bleeding with debridement: Mild Bleeding Controlled with: Pressure Patient tolerated procedure well Assessment/Plan Active Problems (Last Updated 02/22/19 @ 14:55 by Jluis Zarate DO) Septic infrapatellar bursitis of right knee (Acute) Open wound of right knee (Acute) Mentally challenged (Chronic) Assessment: 1. Septic infrapatellar bursitis of right knee. 2. Open wound of right knee. 3. Mentally challenged Plan: Patient was admitted on 02/22/19 for cellulitis and bursitis abscess. Cultures were negative. She was given IV Vancomycin and Zosyn. Discharged home on Bactrim. Will stop iodoform gauze and pack Silvercell into the right knee opened area. Will place tubigrip for compression and to help prevent her from picking at it. She has home health come three times per week. The shelter she lives in is not able to change her dressing because it requires being packed. She sees Dr. Moon on 03/15/19. Follow up in one week. Code Visit Office Visits / Consults: 72500 OV L3 Est - 25 modifier 111xxx-113xx: [id number] Nava subq tissue 20 sq cm/<
[2019-03-09 14:18] VITALS: BP 120/66; PULSE 76; RESP 18; TEMP 36.1; BMI 24.0
--- NOTE | 2019-03-09 17:53 | PN.PCM_ITS ---
(1) Open wound of right knee Status: Acute Code(s): S81.001A - Unspecified open wound, right knee, initial encounter (2) Septic infrapatellar bursitis of right knee Status: Acute Code(s): M71.161 - Other infective bursitis, right knee; B96.89 - Other specified bacterial agents as the cause of diseases classified elsewhere (3) Mentally challenged Status: Chronic Code(s): F79 - Unspecified intellectual disabilities Type of Wound Date of Service: 03/09/19 Chief Complaint: right knee septic bursitis with abscess History of Wound: Patient has a history of Cerebral palsy, MRDD, history of seizure disorder. She often crawls on her hands and knees to get around. She developed redness and swelling over her right knee and was admitted through the ED on 02/22/19 where they performed an I&D where thick gelatinous purulent drainage was obtained. Wound and blood cultures from 02/22/19 were negative. She was admitted and placed on IV Vancomycin and Zosyn. They have been packing the knee with iodoform gauze. She was discharged and referred to the wound center. The senior living where she lives is not able to pack her wound daily. Home health comes out 3 times per week. Wound care will stop silvercell and place collagen hydrogel daily into the opened area. Progress of Wound: Improved - Physical Exam Vital Signs Temp Pulse Resp BP 97 F L 76 18 120/66 03/09/19 14:18 03/09/19 14:18 03/09/19 14:18 03/09/19 14:18 General: Alert, Cooperative HEENT: Atraumatic Oral: Moist Mucosa Lungs: Normal air movement Cardiovascular: Regular rate Abdomen: Soft Extremities: No edema, Capillary Refill Less than 3 Seconds Skin: Ulcer/ Wound - right knee Wound Measurements and Assessment WC - Nurse 1 - General Ulcer Measurement Start: 03/02/19 14:31 Freq: Status: Active Protocol: Activity Type Activity Date Activity User E-Sign Co-Sign Detail Recorded Client Recorded Date Recorded By Document 03/09/19 14:18 RB [id number] 03/09/19 14:24 RB 03/09/19 14:18 Wound Center Nurse 1 [Ulcer Assessment] #1- R KNEE -Combined with other wound No -Current Size (cm) - Length 0.5 -Current Size (cm) - Width 1.5 -Current Size (cm) - Depth 1 -Total Square Cm 0.75 -Tunneling No -Undermining/Tunneling No -Circular Undermining No -Exudate Amt Small -Exudate Type Serosanguineous -Wound Margin Flat & Intact -Granulation Amt Large (67-100%) -Granulation Quality Olean -Slough/Fibrin Yes -Necrosis Amt Small (1-33%) -Necrotic Tissue Type Adherent Slough -Structure Exposed N/A -Texture (Morena-wound Skin Appearance) Assessed -Moisture (Morena-wound Skin Appearance Assessed ) -Color (Morena-wound Skin Appearance) Assessed, Erythema -Temperature (Morena-wound Skin No Abnormality Appearance) (Pt Warm) -Tenderness on Palpation (Morena-wound No Skin Appearance) -Ulcer Cleansing Wound Cleanser -Foul Odor after Cleansing No -Anesthetic Used 5% Lidocaine Gel WC - Nurse 2 - General Ulcer CM Notes Start: 03/02/19 14:31 Freq: Status: Active Protocol: Activity Type Activity Date Activity User E-Sign Co-Sign Detail Recorded Client Recorded Date Recorded By Document 03/09/19 14:36 AVERY [id number] 03/09/19 14:40 03/09/19 14:36 Wound Center Nurse 2 [Procedure/Treatment] -Time 14:37 -Correct Patient Yes -Correct Side, Site, Position Yes -Correct Procedure Yes -Procedure Performed Yes -Type of Procedure Debridement -Clinical Debridement Subcutaneous -Post Debridement Size (cm) - Length 0.4 -Post Debridement Size (cm) - Width 1.2 -Post Debridement Size (cm) - Depth 1.0 -Total Square Cm 0.48 -Wound/Ulcer Outcome Not Healed -Ulcer Cleansing Rinsed/ Irrigated with Saline -Foul Odor after Cleansing No -Bioengineered Tissue No -Bleeding Controlled with Pressure -Offloading No -Treatment Response Procedure Tolerated Well [See Physician Procedure note for Specifics] Pain Scale: 0-10 Numeric [Pain] -Is Patient Pain Free? Yes Musculoskeletal: Tenderness Neurological: Neuro grossly intact Psych/Mental Status: Normal Affect Debridement Note Post-Debridement Measurements/Treatment WC - Nurse 2 - General Ulcer CM Notes Start: 03/02/19 14:31 Freq: Status: Active Protocol: Activity Type Activity Date Activity User E-Sign Co-Sign Detail Recorded Client Recorded Date Recorded By Document 03/02/19 15:22 [id number] 03/02/19 15:23 Document 03/09/19 14:36 [id number] 03/09/19 14:40 03/02/19 03/09/19 15:22 14:36 Wound Center Nurse 2 #1- R KNEE -Time 15:22 14:37 -Correct Patient Yes Yes -Correct Side, Site, Position Yes Yes -Correct Procedure Yes Yes -Procedure Performed Yes Yes -Type of Procedure Debridement Debridement -Clinical Debridement Subcutaneous Subcutaneous -Post Debridement Size (cm) - Length 0.7 0.4 -Post Debridement Size (cm) - Width 1.8 1.2 -Post Debridement Size (cm) - Depth 1.7 1.0 -Total Square Cm 1.26 0.48 -Wound/Ulcer Outcome Not Healed Not Healed -Ulcer Cleansing Rinsed/ Rinsed/ Irrigated with Irrigated with Saline Saline -Foul Odor after Cleansing No No -Bioengineered Tissue No No -Bleeding Controlled with Pressure Pressure -Offloading No No -Treatment Response Procedure Procedure Tolerated Well Tolerated Well Pain Scale: 0-10 Numeric Is Patient Pain Free? Yes Yes Wound debrided: knee Laterality: Right Type of Debridement: Excisional debridement Anesthesia Used: 5% Lidocaine Gel Depth: Down to and including healthy tissue, in the subcutaneous layer Percentage of wound debrided: 100 Instrument Used: 3mm curette Tissue Removed: Subcutaneous tissue and slough Severity: Limited To Skin Breakdown Amount of bleeding with debridement: Mild Bleeding Controlled with: Pressure, Compression and gauze Patient tolerated procedure well Assessment/Plan Assessment: 1. Septic infrapatellar bursitis of right knee. 2. Open wound of right knee. 3. Mentally challenged Plan: Patient was admitted on 02/22/19 for cellulitis and bursitis abscess. Cultures were negative. She was given IV Vancomycin and Zosyn. Discharged home on Bactrim. Will stop Silvercell and start Collagen hydrgel into the right knee opened area. Will place tubigrip for compression and to help prevent her from picking at it. Home health states they can not come out any more, so changing to Collagen hydrogel the people at the senior living will able to change that dressing as long as there is no packing involved. She missses going to work/workshop, will release her to go back if she is in her travel chair and not crawling on the floor. She sees Dr. Moon on 03/15/19. Follow up in one week. Code Visit 111xxx-113xx: [id number] Nava subq tissue 20 sq cm/<
== END 2019-03-11 23:59 ==
LOC: WC 14:30
PROVIDERS: Family Provider Internal Medicine; PCP Internal Medicine; Visit Provider Nurse Practitioner Family
DX: M71.061 Abscess of bursa, right knee (principal); B96.89 Other specified bacterial agents as the cause of diseases classified elsewhere; F79 Unspecified intellectual disabilities; G40.909 Epilepsy, unspecified, not intractable, without status epilepticus; G80.9 Cerebral palsy, unspecified; L76.82 Other postprocedural complications of skin and subcutaneous tissue; Y83.8 Other surgical procedures as the cause of abnormal reaction of the patient, or of later complication, without mention of misadventure at the time of the procedure; T81.89XA Other complications of procedures, not elsewhere classified, initial encounter
CPT/HCPCS: 11042; 99213; G0463

== ENCOUNTER 2019-04-05 12:00 | Outpatient (RCR) | payer MEDICARE, MEDICAID, SELFPAY ==
[2019-03-12 01:32] VITALS: BP 120/66; PULSE 76; RESP 18; TEMP 36.1
[2019-03-16 13:14] VITALS: BP 131/76; PULSE 86; RESP 18; TEMP 36.1; BMI 24.0
--- NOTE | 2019-03-16 14:51 | PCM.WC.PN ---
(1) Septic infrapatellar bursitis of right knee Status: Acute Code(s): M71.161 - Other infective bursitis, right knee; B96.89 - Other specified bacterial agents as the cause of diseases classified elsewhere (2) Open wound of right knee Status: Acute Code(s): S81.001A - Unspecified open wound, right knee, initial encounter (3) Mentally challenged Status: Chronic Code(s): F79 - Unspecified intellectual disabilities Type of Wound Date of Service: 03/16/19 Chief Complaint: right knee septic bursitis with abscess History of Wound: Patient has a history of Cerebral palsy, MRDD, history of seizure disorder. She often crawls on her hands and knees to get around. She developed redness and swelling over her right knee and was admitted through the ED on 02/22/19 where they performed an I&D where thick gelatinous purulent drainage was obtained. Wound and blood cultures from 02/22/19 were negative. She was admitted and placed on IV Vancomycin and Zosyn. They have been packing the knee with iodoform gauze. She was discharged and referred to the wound center. The skilled nursing where she lives is not able to pack her wound daily. Home health comes out 3 times per week and theyare stating they can no longer come out. Wound care: collagen hydrogel daily into the opened area. Progress of Wound: Improved. - Physical Exam Vital Signs Temp Pulse Resp BP 97 F L 86 18 131/76 H 03/16/19 13:14 03/16/19 13:14 03/16/19 13:14 03/16/19 13:14 General: Alert HEENT: Atraumatic Oral: Moist Mucosa Lungs: Normal air movement Cardiovascular: Regular rate Extremities: No edema, Capillary Refill Less than 3 Seconds Skin: Ulcer/ Wound - right knee wound Wound Measurements and Assessment WC - Nurse 1 - General Ulcer Measurement Start: 03/16/19 13:13 Freq: Status: Active Protocol: Activity Type Activity Date Activity User E-Sign Co-Sign Detail Recorded Client Recorded Date Recorded By Document 03/16/19 13:14 RB [id number] 03/16/19 13:18 RB 03/16/19 13:14 Wound Center Nurse 1 [Ulcer Assessment] #1- R KNEE -Combined with other wound No -Current Size (cm) - Length 0.1 -Current Size (cm) - Width 0.1 -Current Size (cm) - Depth 0.1 -Total Square Cm 0.01 -Tunneling No -Undermining/Tunneling No -Circular Undermining No -Exudate Amt None Present -Wound Margin Distinct, Outline Attached -Granulation Amt Medium (34-66%) -Granulation Quality [place] -Slough/Fibrin Yes -Necrosis Amt Small (1-33%) -Necrotic Tissue Type Adherent Slough -Structure Exposed N/A -Texture (Morena-wound Skin Appearance) Assessed -Moisture (Morena-wound Skin Appearance Assessed,Dry/ ) Scaly -Color (Morena-wound Skin Appearance) Assessed -Temperature (Morena-wound Skin No Abnormality Appearance) (Pt Warm) -Tenderness on Palpation (Morena-wound No Skin Appearance) -Ulcer Cleansing Wound Cleanser -Foul Odor after Cleansing No -Anesthetic Used 5% Lidocaine Gel [Edema Assessment] -Lower Limb Edema Present Yes -Right Calf (cm) 29 -Right Ankle (cm) 21.5 WC - Nurse 2 - General Ulcer CM Notes Start: 03/16/19 13:13 Freq: Status: Active Protocol: Activity Type Activity Date Activity User E-Sign Co-Sign Detail Recorded Client Recorded Date Recorded By Document 03/16/19 13:40 AVERY [id number] 03/16/19 13:41 AVERY 03/16/19 13:40 Wound Center Nurse 2 [Procedure/Treatment] #1- R KNEE -Time 13:41 -Correct Patient Yes -Correct Side, Site, Position Yes -Correct Procedure Yes -Procedure Performed Yes -Type of Procedure Debridement -Clinical Debridement Subcutaneous -Post Debridement Size (cm) - Length 0.2 -Post Debridement Size (cm) - Width 0.7 -Post Debridement Size (cm) - Depth 0.2 -Total Square Cm 0.14 -Wound/Ulcer Outcome Not Healed -Ulcer Cleansing Rinsed/ Irrigated with Saline -Foul Odor after Cleansing No -Bioengineered Tissue No -Bleeding Controlled with Pressure -Offloading No -Treatment Response Procedure Tolerated Well [See Physician Procedure note for Specifics] Pain Scale: 0-10 Numeric [Pain] -Is Patient Pain Free? Yes Musculoskeletal: No Tenderness to Palpation of Joints or Extremities Neurological: Neuro grossly intact Psych/Mental Status: Normal Affect Debridement Note Post-Debridement Measurements/Treatment WC - Nurse 2 - General Ulcer CM Notes Start: 03/16/19 13:13 Freq: Status: Active Protocol: Activity Type Activity Date Activity User E-Sign Co-Sign Detail Recorded Client Recorded Date Recorded By Document 03/16/19 13:40 AVERY [id number] 03/16/19 13:41 AVERY 03/16/19 13:40 Wound Center Nurse 2 #1- R KNEE -Time 13:41 -Correct Patient Yes -Correct Side, Site, Position Yes -Correct Procedure Yes -Procedure Performed Yes -Type of Procedure Debridement -Clinical Debridement Subcutaneous -Post Debridement Size (cm) - Length 0.2 -Post Debridement Size (cm) - Width 0.7 -Post Debridement Size (cm) - Depth 0.2 -Total Square Cm 0.14 -Wound/Ulcer Outcome Not Healed -Ulcer Cleansing Rinsed/ Irrigated with Saline -Foul Odor after Cleansing No -Bioengineered Tissue No -Bleeding Controlled with Pressure -Offloading No -Treatment Response Procedure Tolerated Well Pain Scale: 0-10 Numeric Is Patient Pain Free? Yes Wound debrided: knee wound Laterality: Right Type of Debridement: Excisional debridement Anesthesia Used: 5% Lidocaine Gel Depth: Down to and including healthy tissue, in the subcutaneous layer Percentage of wound debrided: 100 Instrument Used: 3mm curette Tissue Removed: Subcutaneous tissue and slough Severity: Limited To Skin Breakdown Amount of bleeding with debridement: Mild Bleeding Controlled with: Pressure, Compression and gauze Patient tolerated procedure well Assessment/Plan Assessment: 1. Septic infrapatellar bursitis of right knee. 2. Open wound of right knee. 3. Mentally challenged Plan: Patient was admitted on 02/22/19 for cellulitis and bursitis abscess. Cultures were negative. She was given IV Vancomycin and Zosyn. Discharged home on Bactrim. Continue Collagen hydrgel into the right knee opened area. Will place tubigrip for compression and to help prevent her from picking at it. She is doeing well at work/workshop, will release her to go back if she is in her travel chair and not crawling on the floor. She sees Dr. Moon on 03/15/19. Follow up in one week. Code Visit 111xxx-113xx: 23993 Nava subq tissue 20 sq cm/<
[2019-03-23 13:43] VITALS: BP 135/75; PULSE 100; RESP 16; TEMP 37.2; BMI 24.0
--- NOTE | 2019-03-23 15:52 | PCM.WC.PN ---
(1) Open wound of right knee Status: Acute Current Visit: Yes Code(s): S81.001A - Unspecified open wound, right knee, initial encounter (2) Septic infrapatellar bursitis of right knee Status: Acute Current Visit: Yes Code(s): M71.161 - Other infective bursitis, right knee; B96.89 - Other specified bacterial agents as the cause of diseases classified elsewhere (3) Mentally challenged Status: Chronic Current Visit: Yes Code(s): F79 - Unspecified intellectual disabilities Type of Wound Date of Service: 03/23/19 Chief Complaint: right knee septic bursitis with abscess History of Wound: Patient has a history of Cerebral palsy, MRDD, history of seizure disorder. She often crawls on her hands and knees to get around. She developed redness and swelling over her right knee and was admitted through the ED on 02/22/19 where they performed an I&D where thick gelatinous purulent drainage was obtained. Wound and blood cultures from 02/22/19 were negative. She was admitted and placed on IV Vancomycin and Zosyn. They have been packing the knee with iodoform gauze. She was discharged and referred to the wound center. The assisted where she lives is not able to pack her wound daily. Home health comes out 3 times per week and theyare stating they can no longer come out. Wound care: collagen hydrogel daily into the opened area. Progress of Wound: Improved. - Physical Exam Vital Signs Temp Pulse Resp BP 98.9 F 100 16 135/75 H 03/23/19 13:43 03/23/19 13:43 03/23/19 13:43 03/23/19 13:43 General: Alert HEENT: Atraumatic Oral: Moist Mucosa Lungs: Normal air movement Cardiovascular: Regular rate Extremities: Capillary Refill Less than 3 Seconds, Diminished Peripheral Pulses, Edema Skin: Ulcer/ Wound - right knee wound with improvment Wound Measurements and Assessment WC - Nurse 1 - General Ulcer Measurement Start: 03/16/19 13:13 Freq: Status: Active Protocol: Activity Type Activity Date Activity User E-Sign Co-Sign Detail Recorded Client Recorded Date Recorded By Document 03/23/19 13:43 [facility] [id number] 03/23/19 13:53 [facility] 03/23/19 13:43 Wound Center Nurse 1 [Ulcer Assessment] #1- R KNEE -Combined with other wound No -Current Size (cm) - Length 0.1 -Current Size (cm) - Width 0.1 -Current Size (cm) - Depth 0.1 -Total Square Cm 0.01 -Photo Taken No -Epithelialization Large 67-100% -Tunneling No -Undermining/Tunneling No -Circular Undermining No -Exudate Amt None Present -Texture (Morena-wound Skin Appearance) Assessed, Scarring -Moisture (Morena-wound Skin Appearance Assessed,Dry/ ) Scaly -Color (Morena-wound Skin Appearance) Assessed -Temperature (Morena-wound Skin No Abnormality Appearance) (Pt Warm) -Tenderness on Palpation (Morena-wound No Skin Appearance) -Ulcer Cleansing Rinsed/ Irrigated with Saline -Foul Odor after Cleansing No -Anesthetic Used 5% Lidocaine Gel [Edema Assessment] -Lower Limb Edema Present Yes -Right Calf (cm) 26.7 -Right Ankle (cm) 21.5 WC - Nurse 2 - General Ulcer CM Notes Start: 03/16/19 13:13 Freq: Status: Active Protocol: Activity Type Activity Date Activity User E-Sign Co-Sign Detail Recorded Client Recorded Date Recorded By Document 03/23/19 14:00 [id number] 03/23/19 14:03 03/23/19 14:00 Wound Center Nurse 2 [Procedure/Treatment] #1- R KNEE -Time 14:02 -Correct Patient Yes -Correct Side, Site, Position Yes -Correct Procedure Yes -Procedure Performed Yes -Type of Procedure Debridement -Clinical Debridement Subcutaneous -Post Debridement Size (cm) - Length 0.1 -Post Debridement Size (cm) - Width 0.9 -Post Debridement Size (cm) - Depth 0.2 -Total Square Cm 0.09 -Wound/Ulcer Outcome Not Healed -Ulcer Cleansing Rinsed/ Irrigated with Saline -Foul Odor after Cleansing No -Bioengineered Tissue No -Bleeding Controlled with Pressure -Offloading No -Treatment Response Procedure Tolerated Well [See Physician Procedure note for Specifics] Pain Scale: 0-10 Numeric [Pain] -Is Patient Pain Free? Yes Musculoskeletal: No Tenderness to Palpation of Joints or Extremities Neurological: Cranial nerves II-XII grossly intact Psych/Mental Status: Normal Affect, Appropriate Debridement Note Post-Debridement Measurements/Treatment WC - Nurse 2 - General Ulcer CM Notes Start: 11/05/19 13:13 Freq: Status: Active Protocol: Activity Type Activity Date Activity User E-Sign Co-Sign Detail Recorded Client Recorded Date Recorded By Document 03/16/19 13:40 [id number] 03/16/19 13:41 Document 03/23/19 14:00 [id number] 03/23/19 14:03 03/16/19 03/23/19 13:40 14:00 Wound Center Nurse 2 #1- R KNEE -Time 13:41 14:02 -Correct Patient Yes Yes -Correct Side, Site, Position Yes Yes -Correct Procedure Yes Yes -Procedure Performed Yes Yes -Type of Procedure Debridement Debridement -Clinical Debridement Subcutaneous Subcutaneous -Post Debridement Size (cm) - Length 0.2 0.1 -Post Debridement Size (cm) - Width 0.7 0.9 -Post Debridement Size (cm) - Depth 0.2 0.2 -Total Square Cm 0.14 0.09 -Wound/Ulcer Outcome Not Healed Not Healed -Ulcer Cleansing Rinsed/ Rinsed/ Irrigated with Irrigated with Saline Saline -Foul Odor after Cleansing No No -Bioengineered Tissue No No -Bleeding Controlled with Pressure Pressure -Offloading No No -Treatment Response Procedure Procedure Tolerated Well Tolerated Well Pain Scale: 0-10 Numeric Is Patient Pain Free? Yes Yes Wound debrided: knee wound Laterality: Right Type of Debridement: Excisional debridement Anesthesia Used: 5% Lidocaine Gel Depth: Down to and including healthy tissue, in the subcutaneous layer Percentage of wound debrided: 100 Instrument Used: 3mm curette Tissue Removed: Subcutaneous tissue and slough Severity: Limited To Skin Breakdown Amount of bleeding with debridement: Mild Bleeding Controlled with: Pressure Patient tolerated procedure well Assessment/Plan Active Problems (Last Updated 02/22/19 @ 14:55 by Jluis Zarate DO) Septic infrapatellar bursitis of right knee (Acute) Open wound of right knee (Acute) Mentally challenged (Chronic) Assessment: 1. Septic infrapatellar bursitis of right knee. 2. Open wound of right knee. 3. Mentally challenged Plan: Patient was admitted on 02/22/19 for cellulitis and bursitis abscess. Cultures were negative. She was given IV Vancomycin and Zosyn. Discharged home on Bactrim, which has been completed. Continue Collagen hydrgel into the right knee opened area. Will place tubigrip for compression and to help prevent her from picking at it. She is doeing well at work/workshop, will release her to go back if she is in her travel chair and not crawling on the floor. Her care caregiver states that she misses sitting on the floor, so allow her to sit on the floor periodically without crawling. Encouraged to get knee pads (like volley ball players wear) to protect her knee. Follow up in one week. Code Visit 111xxx-113xx: 15548 Nava subq tissue 20 sq cm/<
[2019-03-30 13:16] VITALS: RESP 16; TEMP 36.9; BMI 24.0
--- NOTE | 2019-03-30 14:17 | PCM.WC.PN ---
(1) Edema of right lower extremity Status: Acute Code(s): R60.0 - Localized edema (2) Open wound of right knee Status: Acute Code(s): S81.001A - Unspecified open wound, right knee, initial encounter (3) Septic infrapatellar bursitis of right knee Status: Acute Code(s): M71.161 - Other infective bursitis, right knee; B96.89 - Other specified bacterial agents as the cause of diseases classified elsewhere (4) Mentally challenged Status: Chronic Code(s): F79 - Unspecified intellectual disabilities Type of Wound Date of Service: 03/30/19 Chief Complaint: right knee septic bursitis with abscess History of Wound: Patient has a history of Cerebral palsy, MRDD, history of seizure disorder. She often crawls on her hands and knees to get around. She developed redness and swelling over her right knee and was admitted through the ED on 02/22/19 where they performed an I&D where thick gelatinous purulent drainage was obtained. Wound and blood cultures from 02/22/19 were negative. She was admitted and placed on IV Vancomycin and Zosyn. They have been packing the knee with iodoform gauze. She was discharged and referred to the wound center. The [facility] where she lives is not able to pack her wound daily. Home health comes out 3 times per week and theyare stating they can no longer come out.She is healed today but has edema on the right lower leg, will apply a double tubigrip for compression. Progress of Wound: Improved. - Physical Exam Vital Signs Temp Pulse Resp BP 98.4 F 100 16 135/75 H 03/30/19 13:16 03/23/19 13:43 03/30/19 13:16 03/23/19 13:43 General: Alert HEENT: Atraumatic Oral: Moist Mucosa Lungs: Normal air movement Cardiovascular: Regular rate Extremities: Capillary Refill Less than 3 Seconds, Edema - right lower leg and foot dependent edema., Peripheral Pulses Normal Skin: Ulcer/ Wound - right knee wound is healed today Wound Measurements and Assessment WC - Nurse 1 - General Ulcer Measurement Start: 03/16/19 13:13 Freq: Status: Active Protocol: Activity Type Activity Date Activity User E-Sign Co-Sign Detail Recorded Client Recorded Date Recorded By Document 03/30/19 13:16 [facility] [id number] 03/30/19 13:23 [facility] 03/30/19 13:16 Wound Center Nurse 1 [Ulcer Assessment] #1- R KNEE -Combined with other wound No -Current Size (cm) - Length 0.1 -Current Size (cm) - Width 0.1 -Current Size (cm) - Depth 0.1 -Total Square Cm 0.01 -Epithelialization Large 67-100% -Tunneling No -Undermining/Tunneling No -Circular Undermining No -Exudate Amt None Present -Granulation Amt Small (1-33%) -Granulation Quality [place] -Slough/Fibrin No -Necrosis Amt None Present (0 %) -Texture (Morena-wound Skin Appearance) Assessed, Scarring -Moisture (Morena-wound Skin Appearance Assessed,Dry/ ) Scaly -Color (Morena-wound Skin Appearance) Assessed -Temperature (Morena-wound Skin No Abnormality Appearance) (Pt Warm) -Tenderness on Palpation (Morena-wound No Skin Appearance) -Ulcer Cleansing Rinsed/ Irrigated with Saline -Foul Odor after Cleansing No -Anesthetic Used 5% Lidocaine Gel [Edema Assessment] -Lower Limb Edema Present Yes -Right Calf (cm) 28.5 -Right Ankle (cm) 21 WC - Nurse 2 - General Ulcer CM Notes Start: 03/16/19 13:13 Freq: Status: Active Protocol: Activity Type Activity Date Activity User E-Sign Co-Sign Detail Recorded Client Recorded Date Recorded By Document 03/30/19 14:07 [id number] 03/30/19 14:08 03/30/19 14:07 Wound Center Nurse 2 [Procedure/Treatment] #1- R KNEE -Correct Patient No -Correct Side, Site, Position No -Correct Procedure No -Procedure Performed No -Post Debridement Size (cm) - Length 0 -Post Debridement Size (cm) - Width 0 -Post Debridement Size (cm) - Depth 0 -Total Square Cm 0 -Wound/Ulcer Outcome Healed- Epithelialized [See Physician Procedure note for Specifics] Pain Scale: 0-10 Numeric [Pain] -Is Patient Pain Free? Yes Musculoskeletal: No Muscle Wasting Neurological: Cranial nerves II-XII grossly intact Psych/Mental Status: Normal Affect Debridement Note Post-Debridement Measurements/Treatment WC - Nurse 2 - General Ulcer CM Notes Start: 03/16/19 13:13 Freq: Status: Active Protocol: Activity Type Activity Date Activity User E-Sign Co-Sign Detail Recorded Client Recorded Date Recorded By Document 03/16/19 13:40 [id number] 03/16/19 13:41 Document 03/23/19 14:00 [id number] 03/23/19 14:03 Document 03/30/19 14:07 [id number] 03/30/19 14:08 03/16/19 03/23/19 03/30/19 13:40 14:00 14:07 Wound Center Nurse 2 #1- R KNEE -Time 13:41 14:02 -Correct Patient Yes Yes No -Correct Side, Site, Position Yes Yes No -Correct Procedure Yes Yes No -Procedure Performed Yes Yes No -Type of Procedure Debridement Debridement -Clinical Debridement Subcutaneous Subcutaneous -Post Debridement Size (cm) - Length 0.2 0.1 0 -Post Debridement Size (cm) - Width 0.7 0.9 0 -Post Debridement Size (cm) - Depth 0.2 0.2 0 -Total Square Cm 0.14 0.09 0 -Wound/Ulcer Outcome Not Healed Not Healed Healed- Epithelialized -Ulcer Cleansing Rinsed/ Rinsed/ Irrigated with Irrigated with Saline Saline -Foul Odor after Cleansing No No -Bioengineered Tissue No No -Bleeding Controlled with Pressure Pressure -Offloading No No -Treatment Response Procedure Procedure Tolerated Well Tolerated Well Pain Scale: 0-10 Numeric Is Patient Pain Free? Yes Yes Yes No debridement was completed today Assessment/Plan Assessment: 1. Septic infrapatellar bursitis of right knee. 2. Open wound of right knee. 3. Mentally challenged. 4. Edema of lower right leg Plan: Patient was admitted on 02/22/19 for cellulitis and bursitis abscess. Cultures were negative. She was given IV Vancomycin and Zosyn. Discharged home on Bactrim, which has been completed. Wound is healed, will stop the collagen hydrogel. Will place double tubigrip for compression to see if this will help with her edema of her right leg. She is doing well at work/workshop, will release her to go back if she is in her travel chair and not crawling on the floor. Her care caregiver states that she misses sitting on the floor, so allow her to sit on the floor periodically without crawling. She has been wearing knee pads (like volley ball players wear) to protect her knee. Follow up in one week. Code Visit Office Visits / Consults: [id number] OV L3 Est
[2019-04-05 12:16] VITALS: BP 126/92; PULSE 96; RESP 18; TEMP 37; BMI 24.0
--- NOTE | 2019-04-05 12:17 | WC ---
healed photo of Right knee taken
--- NOTE | 2019-04-05 14:05 | PCM.WC.PN ---
(1) Edema of right lower extremity Status: Acute Code(s): R60.0 - Localized edema (2) Open wound of right knee Status: Resolved Code(s): S81.001A - Unspecified open wound, right knee, initial encounter (3) Septic infrapatellar bursitis of right knee Status: Resolved Code(s): M71.161 - Other infective bursitis, right knee; B96.89 - Other specified bacterial agents as the cause of diseases classified elsewhere (4) Mentally challenged Status: Chronic Code(s): F79 - Unspecified intellectual disabilities Type of Wound Date of Service: 04/05/19 Chief Complaint: right knee septic bursitis with abscess History of Wound: Patient has a history of Cerebral palsy, MRDD, history of seizure disorder. She often crawls on her hands and knees to get around. She developed redness and swelling over her right knee and was admitted through the ED on 02/22/19 where they performed an I&D where thick gelatinous purulent drainage was obtained. Wound and blood cultures from 02/22/19 were negative. She was admitted and placed on IV Vancomycin and Zosyn. They have been packing the knee with iodoform gauze. She was discharged and referred to the wound center. The shelter where she lives is not able to pack her wound daily. Home health comes out 3 times per week and they are stating they can no longer come out. She is healed but had edema on the right lower leg, that decreased after applying a double tubigrip for compression. Progress of Wound: Improved. - Physical Exam Vital Signs Temp Pulse Resp BP 98.6 F 96 18 126/92 H 04/05/19 12:16 04/05/19 12:16 04/05/19 12:16 04/05/19 12:16 General: Alert, Cooperative HEENT: Atraumatic Oral: Moist Mucosa Lungs: Normal air movement Cardiovascular: Regular rate Extremities: Edema - +1 edema bilateral lower legs. Right leg edema improved using a double tubigrip. Skin: No rashes, No breakdown Musculoskeletal: No Muscle Wasting Neurological: Cranial nerves II-XII grossly intact Psych/Mental Status: Normal Affect Debridement Note Post-Debridement Measurements/Treatment WC - Nurse 2 - General Ulcer CM Notes Start: 03/16/19 13:13 Freq: Status: Active Protocol: Activity Type Activity Date Activity User E-Sign Co-Sign Detail Recorded Client Recorded Date Recorded By Document 03/16/19 13:40 [id number] 03/16/19 13:41 Document 03/23/19 14:00 [id number] 03/23/19 14:03 Document 03/30/19 14:07 [id number] 03/30/19 14:08 03/16/19 03/23/19 03/30/19 13:40 14:00 14:07 Wound Center Nurse 2 #1- R KNEE -Time 13:41 14:02 -Correct Patient Yes Yes No -Correct Side, Site, Position Yes Yes No -Correct Procedure Yes Yes No -Procedure Performed Yes Yes No -Type of Procedure Debridement Debridement -Clinical Debridement Subcutaneous Subcutaneous -Post Debridement Size (cm) - Length 0.2 0.1 0 -Post Debridement Size (cm) - Width 0.7 0.9 0 -Post Debridement Size (cm) - Depth 0.2 0.2 0 -Total Square Cm 0.14 0.09 0 -Wound/Ulcer Outcome Not Healed Not Healed Healed- Epithelialized -Ulcer Cleansing Rinsed/ Rinsed/ Irrigated with Irrigated with Saline Saline -Foul Odor after Cleansing No No -Bioengineered Tissue No No -Bleeding Controlled with Pressure Pressure -Offloading No No -Treatment Response Procedure Procedure Tolerated Well Tolerated Well Pain Scale: 0-10 Numeric Is Patient Pain Free? Yes Yes Yes No debridement was completed today Assessment/Plan Assessment: 1. Septic infrapatellar bursitis of right knee. 2. Open wound of right knee. 3. Mentally challenged. 4. Edema of lower right leg Plan: Patient was admitted on 02/22/19 for cellulitis and bursitis abscess. Cultures were negative. She was given IV Vancomycin and Zosyn. Discharged home on Bactrim, which has been completed. Wound is healed. Placing a double tubigrip for compression helped decrease the edema on her right leg. Will continue to wear the double tubigrip for then next month. She is doing well at work/workshop, will release her to go back if she is in her travel chair and not crawling on the floor. Her care caregiver states that she misses sitting on the floor, so allow her to sit on the floor periodically without crawling. She has been wearing knee pads (like volley ball players wear) to protect her knee. Discharge from the wound center today. Code Visit Office Visits / Consults: [id number] OV L3 Est
== END 2019-04-10 23:59 ==
LOC: WC 12:00
PROVIDERS: Family Provider Internal Medicine; PCP Internal Medicine; Visit Provider Nurse Practitioner Family
DX: M71.161 Other infective bursitis, right knee (principal); G40.909 Epilepsy, unspecified, not intractable, without status epilepticus; G80.9 Cerebral palsy, unspecified; F79 Unspecified intellectual disabilities; M79.89 Other specified soft tissue disorders; R60.0 Localized edema; T81.89XA Other complications of procedures, not elsewhere classified, initial encounter; Y83.8 Other surgical procedures as the cause of abnormal reaction of the patient, or of later complication, without mention of misadventure at the time of the procedure
CPT/HCPCS: 11042; 99212; G0463

== ENCOUNTER 2023-02-01 15:50 | Emergency (ER) | payer MEDICARE, MEDICAID, SELFPAY ==
[2023-02-01 15:51] VITALS: BP 158/74; PULSE 67; RESP 14; TEMP 36.2; O2SAT 100
[2023-02-01 15:54] VITALS: BMI 20.9
--- NOTE | 2023-02-01 16:13 | EDS_ITS ---
HPI History of Present Illness Chief Complaint: Seizure Narrative Narrative: Patient presents after a seizure. She has chronic recurrent seizures. This is seen by the F staff and witnessed multiple times and this is no different and the only reason she is here in the ED is because she had a chin laceration. She is now postictal and acting almost herself. By time I had left the room patient left she was back to her baseline. [facility] Medical History (Updated 02/01/23 @ 16:[address] Ham Schofield MD) Cerebral palsy MRDM (malnutrition related diabetes mellitus) Seizure disorder Home Medications carbamazepine 200 mg tablet 300 mg PO DAILY 08/29/14 [History Last Taken 02/21/19] loratadine 10 mg tablet (Allergy Relief (loratadine)) 10 mg PO DAILY@0630 08/29/14 [History Last Taken 02/22/19] polyethylene glycol 3350 17 gram oral powder packet 17 g PO DAILY@1530 08/29/14 [History Last Taken 02/21/19] lacosamide 200 mg tablet 200 mg PO BID seizures 02/22/19 [History Last Taken 02/22/19] carbamazepine 200 mg tablet 1,600 mg PO DAILY 03/02/19 [History Last Taken Unknown] Allergy/AdvReac Type Severity Reaction Status Date / Time No Known Allergies Allergy Verified 02/01/23 15:51 Social History Smoking Status: Never smoker ROS ROS ED ROS Narrative Unable secondary to patient's MRDD EXAM Physical Exam Narrative Exam Narrative: Physical exam General: MRDD features. She does not appear in any distress. She is cooperative. Head: Normocephalic, Atraumatic Eyes: Conjunctiva not pale ENT: 2 cm chin laceration. Normal bite no other facial injuries. No nasal septal hematoma. Neck: Supple, Nontender, No lymphadenopathy Cardiovascular: Regular rate, Regular rhythm Respiratory: No distress, CTA bilaterally Abdomen: Soft, Nontender, Nondistended Back: Nontender, Normal Inspection. Negative for: CVA tenderness Extremities: Nontender, No edema Skin: Normal color, No rash Neurological: Alert, she is verbal however minimally. Normal Strength, Normal Sensation Const Vital Signs: 02/01/23 15:51 Temperature 97.2 F L Temperature Source Temporal Pulse Rate 67 Respiratory Rate 14 Blood Pressure 158/74 H Blood Pressure Mean 102 Pulse Ox 100 Oxygen Delivery Method Room Air MDM MDM MDM Narrative Medical decision making narrative: Procedure note: Patient had a chin laceration that is 2 cm, it approximated well therefore the decision was made to use Dermabond. I used Shur-Clens to clean the wound, I used Dermabond and approximated will quite well. Patient tolerated procedure well. MDM: Patient has chronic recurrent seizures, she recently had blood work is unremarkable, she recently saw her neurologist. I do not believe blood work is needed, she hit her chin and is back to normal vital believe a CT of the head is needed I believe that CT of the face is needed. She has staff at the [facility] who care for her quite well and I talked to the. She is back to baseline and if it were not for the chin laceration she was not be brought to the ED. Therefore I believe it is safe for discharge. Discharge Plan Triage Chief Complaint: Seizure ED Provider: Ham Schofield Dx/Rx/DC Orders Clinical Impression: Seizure, Chin laceration Instructions: ED Head Injury (Adult), ED Laceration: Skin Adhesive Prescriptions: No Action polyethylene glycol 3350 17 GM powder in packet 17 g PO DAILY@1530 carbamazepine 200 MG tablet 300 mg PO DAILY loratadine [Allergy Relief (loratadine)] 10 MG tablet 10 mg PO DAILY@0630 lacosamide 200 MG tablet 200 mg PO BID carbamazepine 200 MG tablet 1,600 mg PO DAILY Primary Care Provider: Dorota Glass Referrals: Dorota Glass MD [Primary Care Provider] - 3-5 Days Disposition Disposition: Home, Self Care
[2023-02-01 16:18] VITALS: PULSE 71; RESP 20; O2SAT 98
== END 2023-02-01 16:26 | disposition home or self-care (01) ==
LOC: ED 16:23
PROVIDERS: Emergency Provider Emergency Medicine; PCP Internal Medicine; Visit Provider Emergency Medicine
DX: S01.81XA Laceration without foreign body of other part of head, initial encounter (principal); R56.9 Unspecified convulsions; E11.9 Type 2 diabetes mellitus without complications; X58.XXXA Exposure to other specified factors, initial encounter
CPT/HCPCS: 12011; 99283

== ENCOUNTER 2023-07-10 17:56 | Emergency (ER) | payer MEDICARE, MEDICAID, SELFPAY ==
[2023-07-10 17:58] VITALS: BP 128/49; PULSE 90; RESP 18; TEMP 37.2; O2SAT 98
--- NOTE | 2023-07-10 18:50 | CT_ITS ---
STUDY: CT CERVICAL SPINE WITHOUT CONTRAST REASON FOR EXAM: Female, 52 years old. head injury RADIATION DOSAGE (If Supplied By Facility): CTDIvol = ( 12.48 ) mGy, DLP = ( 234.45 ) mGycm TECHNIQUE: High resolution transaxial imaging was performed without contrast material. Sagittal and coronal images were reconstructed. Individualized dose optimization techniques were used for this CT. COMPARISON: None FINDINGS: Normal craniovertebral junction. There are degenerative changes of the anterior atlantoaxial articulation. Normal odontoid process. Normal cervical lordosis. Normal vertebral bodies and posterior osseous elements. C2-3: Moderate left facet hypertrophy produces moderate left neural foraminal stenosis. Mild right facet hypertrophy with ankylosis of facet joint. C3-4: Moderate right facet hypertrophy produces moderate neural foraminal stenosis. No central spinal stenosis. C4-5: Mild bilateral facet hypertrophy. Mild bilateral disc osteophyte complex with bilateral uncovertebral hypertrophy produces mild spinal stenosis and mild bilateral neural foraminal stenosis. C5-6: Mild bilobed disc osteophyte complex and bilateral uncovertebral hypertrophy produce mild spinal stenosis and mild bilateral neural foraminal stenosis. C6-7: 2 mm of anterolisthesis of C6 on C7 with no spinal stenosis and mild bilateral neural foraminal stenosis. C7-T1: Normal endplates. Normal disc height and morphology. Normal central canal and intervertebral neuroforamina. Normal visualized soft tissue structures. CT/Spine Cervical without Contras IMPRESSION: 1. No acute fracture or subluxation. 2. Degenerative disc disease as described above. Electronically Signed: Oh Marion MD at 21:07 EST ,
--- NOTE | 2023-07-10 18:50 | CT_ITS ---
STUDY: CT BRAIN WITHOUT CONTRAST REASON FOR EXAM: Female, 52 years old. head injury RADIATION DOSAGE (If Supplied By Facility): CTDIvol = ( 44.99 ) mGy, DLP = ( 796.11 ) mGycm TECHNIQUE: Transaxial CT imaging of the brain was performed without administration of intravenous contrast material. Individualized dose optimization techniques were used for this CT. COMPARISON: 08/18/2015 FINDINGS: Normal soft tissue structures. Normal calvarium. 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 Normal white matter tracts of the cerebral hemispheres. Normal basal ganglia and thalami. Normal brainstem. Normal cerebellum. There is no intracranial hemorrhage. There are no findings of an acute ischemic infarction. There is mucoperiosteal inflammatory disease of the paranasal sinuses consistent with mild chronic sinusitis. CT/Brain/Head without Contrast IMPRESSION: No acute abnormality. Electronically Signed: Oh Marion MD at 21:03 EST ,
--- NOTE | 2023-07-10 19:06 | EX.ED.GENINJ ---
HPI <JITENDRA Ayoub - Last Filed: 07/10/23 21:21> History of Present Illness Chief Complaint: Seizure Narrative Narrative: Patient presenting today due to 3 seizures that occurred today. She does have a history of a developmental disability and is here with her caregiver who reports that she had 3 seizures within 1 hour which is unusual for her. It is not abnormal for her to have a breakthrough seizure, however, she does not usually have multiple within that short of a window. Her caregiver reports that she did fall and hit her head during one of the seizures. The fall was unwitnessed. Patient was postictal after the seizure, there was no bowel or bladder incontinence. Caregiver reports that they did speak with the neurologist this afternoon via a telehealth visit. She ordered outpatient labs and a head CT to be performed tomorrow. Her caregiver reports that she is not concerned regarding the breakthrough seizures, she is concerned because patient hit her head and wanted her to be evaluated today. She takes Vimpat and cenobamate for her seizures. Patient has not had any recent illness, fever, chills, abdominal pain, nausea, or vomiting. PFSH <JITENDRA Ayoub - Last Filed: 07/10/23 21:21> [facility] Medical History Cerebral palsy MRDM (malnutrition related diabetes mellitus) Seizure disorder Home Medications carbamazepine 200 mg tablet 300 mg PO DAILY 08/29/14 [History Last Taken 02/21/19] loratadine 10 mg tablet (Allergy Relief (loratadine)) 10 mg PO DAILY@0630 08/29/14 [History Last Taken 02/22/19] polyethylene glycol 3350 17 gram oral powder packet 17 g PO DAILY@1530 08/29/14 [History Last Taken 02/21/19] lacosamide 200 mg tablet 200 mg PO BID seizures 02/22/19 [History Last Taken 02/22/19] carbamazepine 200 mg tablet 1,600 mg PO DAILY 03/02/19 [History Last Taken Unknown] cenobamate 100 mg tablet (Xcopri) mg PO 07/10/23 [History Last Taken Unknown] Allergy/AdvReac Type Severity Reaction Status Date / Time No Known Allergies Allergy Verified 07/10/23 17:57 Social History Smoking Status: Never smoker ROS <JITENDRA Ayoub - Last Filed: 07/10/23 21:21> ROS ED Constitutional Constitutional ED: Denies chills or fever(s) Cardiovascular Cardiovascular: Denies chest pain Respiratory/Chest Respiratory/Chest: Denies cough or dyspnea Gastrointestinal Gastrointestinal: Denies abdominal pain, nausea or vomiting Musculoskeletal Musculoskeletal: Denies arthralgias or myalgias Integumentary Denies rash Neurologic Neurologic: Denies weakness EXAM <JITENDRA Ayoub - Last Filed: 07/10/23 21:21> Physical Exam Const Vital Signs: 07/10/23 17:58 07/10/23 18:48 Temperature 98.9 F Temperature Source Temporal Pulse Rate 90 Respiratory Rate 18 Respiratory Effort Normal Respiratory Depth Normal Respiratory Pattern Normal Blood Pressure 128/49 H Blood Pressure Mean 75 Pulse Ox 98 Oxygen Delivery Method Room Air Positive well nourished, well developed and no apparent distress General Appearance ED: well developed HEENT Reports normocephalic and head/scalp atraumatic Mouth ED: Yes moist mucous membranes normal Eyes PERRL and EOMs intact bilaterally Neck full ROM and supple Chest Wall inspection of chest normal Resp normal respiratory effort and clear to auscultation bilaterally Cardio regular rate and regular rhythm GI soft to palpation, non-tender, non-distended and no masses Back/Spine normal ROM and normal to inspection Extremity normal to inspection and full ROM Neuro oriented x3, CN's II-XII intact bilaterally, moves all extremities, no focal motor deficits and no sensory deficits noted Sensorium / Orientation: awake and alert Psych mental status grossly normal and thought process normal Skin no rashes or lesions noted and no wounds <Dr. Hever Cheng, DO - Last Filed: 07/10/23 21:23> Physical Exam Const Vital Signs: 07/10/23 17:58 07/10/23 18:48 Temperature 98.9 F Temperature Source Temporal Pulse Rate 90 Respiratory Rate 18 Respiratory Effort Normal Respiratory Depth Normal Respiratory Pattern Normal Blood Pressure 128/49 H Blood Pressure Mean 75 Pulse Ox 98 Oxygen Delivery Method Room Air MDM <JITENDRA Ayoub - Last Filed: 07/10/23 21:21> MDM MDM Narrative Medical decision making narrative: Patient presenting due to 3 breakthrough seizures that occurred this afternoon. Caregiver reports that she did hit her head during one of the seizures but it was unwitnessed. They spoke with the neurologist this afternoon who is going to obtain labs and imaging as an outpatient but caregiver did not want to wait until tomorrow to have patient evaluated. She is well-appearing and in no acute distress. She is unable to provide history due to developmental delay. Basic labs were obtained, they were unremarkable. Head CT obtained to rule out intracranial bleed and other abnormality, CT scan of the cervical spine obtained to rule out fracture. CT scans are negative for any acute findings. I did offer to obtain a Vimpat level, however, her neurologist is with the [facility] and she is already having this level drawn tomorrow and it may be easier just to let this lab be obtained tomorrow through her neurologist. Encourage that she follow-up with neurology and she will be discharged home in stable condition, patient caregiver comfortable with plan. Lab Data Attestation: I reviewed the patient's lab results. Labs: Laboratory Results - last 24 hr 07/10/23 19:05 WBC 8.5 RBC 4.48 Hgb 13.4 Hct 40.6 MCV 90.6 MCH 29.9 MCHC 33.0 RDW Std Deviation 39.5 RDW Coeff of Domitila 12.0 Plt Count 345 MPV 10.0 Immature Gran % (Auto) 0.500 Neut % (Auto) 83.4 H Lymph % (Auto) 10.8 L [place] % (Auto) 5.0 Eos % (Auto) 0.1 Baso % (Auto) 0.2 Absolute Neuts (auto) 7.1 Absolute Lymphs (auto) 0.92 Nucleated RBC % 0 Sodium 138 Potassium 4.5 Chloride 107 Carbon Dioxide 28.0 Anion Gap 3 L BUN 14 Creatinine 0.67 Estim Creat Clear Calc 69.75 Est GFR (MDRD) Af Amer 118 Est GFR (MDRD) Non-Af 97 BUN/Creatinine Ratio 20.8 H Glucose 116 H Calcium 9.8 Radiography Diagnostic Testing: Clinical Impression(s) from Imaging Studies Brain CT 07/10/23 18:50 IMPRESSION: No acute abnormality. Electronically Signed: Oh Marion MD at 21:03 EST , Cervical Spine CT 07/10/23 18:50 IMPRESSION: 1. No acute fracture or subluxation. 2. Degenerative disc disease as described above. Electronically Signed: Oh Marion MD at 21:07 EST , <Dr. Hever Cheng, DO - Last Filed: 07/10/23 21:23> [facility] MDM Narrative Medical decision making narrative: Patient presenting due to 3 breakthrough seizures that occurred this afternoon. Caregiver reports that she did hit her head during one of the seizures but it was unwitnessed. They spoke with the neurologist this afternoon who is going to obtain labs and imaging as an outpatient but caregiver did not want to wait until tomorrow to have patient evaluated. She is well-appearing and in no acute distress. She is unable to provide history due to developmental delay. Basic labs were obtained, they were unremarkable. Head CT obtained to rule out intracranial bleed and other abnormality, CT scan of the cervical spine obtained to rule out fracture. CT scans are negative for any acute findings. I did offer to obtain a Vimpat level, however, her neurologist is with the [facility] and she is already having this level drawn tomorrow and it may be easier just to let this lab be obtained tomorrow through her neurologist. Encourage that she follow-up with neurology and she will be discharged home in stable condition, patient caregiver comfortable with plan. This patient was seen with a PA/HANDLE LATHE OPERATOR Individually assessed they patient including history and physical. I have reviewed everything on the chart that is available and agree with the documentation provided by the PA/HANDLE LATHE OPERATOR including discussion about the assessment, treatment plan, discussion, and return precautions. Patient presenting with breakthrough seizures and patient's caregiver does state that she has had these in the past and he is less concerned about the breakthrough seizures given that she is having medication changes as she is with a head injury that the patient sustained. There is no external signs of trauma. She is currently acting at baseline. We obtain basic lab work today which was normal and her CBC and BMP were unremarkable. CT brain and cervical spine were negative. Recommended follow-up with neurology given the breakthrough seizures and the medication changes. Return precautions were discussed. Impression: 1. Closed head injury 2. breakthrough seizure Lab Data Labs: Laboratory Results - last 24 hr 07/10/23 19:05 WBC 8.5 RBC 4.48 Hgb 13.4 Hct 40.6 MCV 90.6 MCH 29.9 MCHC 33.0 RDW Std Deviation 39.5 RDW Coeff of Domitila 12.0 Plt Count 345 MPV 10.0 Immature Gran % (Auto) 0.500 Neut % (Auto) 83.4 H Lymph % (Auto) 10.8 L [place] % (Auto) 5.0 Eos % (Auto) 0.1 Baso % (Auto) 0.2 Absolute Neuts (auto) 7.1 Absolute Lymphs (auto) 0.92 Nucleated RBC % 0 Sodium 138 Potassium 4.5 Chloride 107 Carbon Dioxide 28.0 Anion Gap 3 L BUN 14 Creatinine 0.67 Estim Creat Clear Calc 69.75 Est GFR (MDRD) Af Amer 118 Est GFR (MDRD) Non-Af 97 BUN/Creatinine Ratio 20.8 H Glucose 116 H Calcium 9.8 Radiography Diagnostic Testing: Clinical Impression(s) from Imaging Studies Brain CT 07/10/23 18:50 IMPRESSION: No acute abnormality. Electronically Signed: hO Marion MD at 21:03 EST Reading Location ID and State: [id number] / [place] Tel , Service support , Cervical Spine CT 07/10/23 18:50 IMPRESSION: 1. No acute fracture or subluxation. 2. Degenerative disc disease as described above. Electronically Signed: Oh Marion MD at 21:07 EST , Discharge Plan Triage Chief Complaint: Seizure Other Complaint: Fall ED Midlevel Provider: Kelsie Jeffery ED Provider: Hever Cheng Dx/Rx/DC Orders Clinical Impression: Seizure disorder, Head injury Instructions: ED Head Injury (Adult), ED Seizure, Recurrent (Adult) Prescriptions: No Action polyethylene glycol 3350 17 GM powder in packet 17 g PO DAILY@1530 carbamazepine 200 MG tablet 300 mg PO DAILY loratadine [Allergy Relief (loratadine)] 10 MG tablet 10 mg PO DAILY@0630 lacosamide 200 MG tablet 200 mg PO BID carbamazepine 200 MG tablet 1,600 mg PO DAILY Xcopri 100 mg tablet PO Primary Care Provider: Dorota Glass Referrals: Dorota Glass MD [Primary Care Provider] - 3-5 Days Activity Restrictions/Additional Instructions: Please follow-up with neurology and return for any worsening of your symptoms. Disposition Disposition: Home, Self Care
[2023-07-10 19:12] LABS: Absolute Lymphocyte Count 0.92 X10^3/uL (0.83-4.51); Absolute Neutrophil Count 7.1 X10^3/uL (2.0-7.7); Basophil# 0.02 X10^3/uL; Basophil% 0.2 % (0-1); Eosinophil# 0.01 X10^3/uL; Eosinophils% 0.1 % (0-5); Hematocrit 40.6 % (37-47); Hemoglobin 13.4 g/dL (12.0-15.0); Lymphocyte # 0.92 X10^3/ul (0.83-4.51); Lymphocyte % 10.8 % (19-41); Mean Corpuscular Hgb 29.9 pg (27.0-32.0); Mean Corpuscular Volume 90.6 fL (81-99); Monocyte# 0.42 X10^3/uL; NRBC Flagged by Analyzer 0 % (0-5); Neutrophil # 7.07 X10^3/uL (2.7-7.7); Neutrophil % 83.4 % (47-70); Platelet Count 345 K/mm3 (150-450); RBC Distribution Width SD 39.5 fl (35.1-43.9); Red Blood Count 4.48 M/mm3 (4.2-5.4); White Blood Count 8.5 K/mm3 (4.4-11.0)
[2023-07-10 19:14] VITALS: BMI 20.2
[2023-07-10] MEDS: 0.9% Normal Saline (1000mL) 1,000 ML 999 ML IV (19:18)
[2023-07-10 19:25] LABS: Anion Gap 3 (5-15); BUN 14 mg/dL (7-18); BUN/Creat Ratio 20.8 RATIO (10-20); Calcium,Total 9.8 mg/dL (8.5-10.1); Chloride 107 mmol/L (98-107); Creatinine, Serum 0.67 mg/dL (0.55-1.02); EST Glomerular Filtration Rate 97 mL/min (>60); Est Glom Filt Rate - Afr Amer 118 mL/min (>60); Estimated Creatinine Clearance 69.75 ml/min; Glucose 116 mg/dL (74-106); Potassium 4.5 mmol/L (3.5-5.1); Sodium Level 138 mmol/L (136-145)
[2023-07-10 21:29] VITALS: BP 138/97; PULSE 74; RESP 18; TEMP 37.2; O2SAT 100
== END 2023-07-10 21:33 | disposition home or self-care (01) ==
PROVIDERS: Physician Assistant; Emergency Provider Student in an Organized Health Care Education/Training Program; PCP Internal Medicine; Visit Provider Student in an Organized Health Care Education/Training Program
DX: S09.90XA Unspecified injury of head, initial encounter (principal); G40.909 Epilepsy, unspecified, not intractable, without status epilepticus; W19.XXXA Unspecified fall, initial encounter
CPT/HCPCS: 70450; 72125; 80048; 85025; 96360; 96361; 99283; A4216